=== PATIENT | female | born 1950 | race Caucasian/White ===

== ENCOUNTER 2016-09-13 21:11 | Inpatient (IN) | payer MEDICARE ==
[~2016-09-13] VITALS: Ht 157.4 cm; Wt 64.9 kg
--- NOTE | ~2016-09-13 | PR ---
[place], [place] PROGRESS NOTE NAME: RAY MANZANO [facility] #: [id number] UNIT #: [id number] ROOM: 508 DOCTOR: MARTHA GARZA MD BIRTHDATE: [birth year] DOS: 09/19/2016 SUBJECTIVE: The patient was seen at her bedside today 09/19/2016 for followup of congestive heart failure and left ventricular dysfunction. She did have a pharmacologic stress test yesterday, which showed global left ventricular hypokinesis and no specific area of ischemia. This study is compatible with a dilated nonischemic cardiomyopathy. She denies any chest pain or palpitations. She has ambulated short distances. She still has significant lower extremity edema. PHYSICAL EXAMINATION: VITAL SIGNS: Today, her pulse is 78 and regular, blood pressure 165/82. She is afebrile. She weighs 64.9 kg and has a body mass index of 26.2. HEENT: Normocephalic, atraumatic. Extraocular muscles are intact. Sclerae are clear. Pupils are equal, round and reactive to light. The oral mucosa is moist. Tongue is midline. NECK: Supple. She does have jugular distention with hepatojugular reflux when sitting in a 45 degree angle. Carotids are full without bruits. LUNGS: Respirations are unlabored. She has decreased breath sounds at the bases bilaterally. There is no presacral edema. HEART: Regular rhythm with a fourth heart sound and loud third heart sound. The PMI is displaced laterally. ABDOMEN: Soft and normally active. EXTREMITIES: Showed 3+ edema bilaterally. LABORATORY DATA: Sodium is 140, potassium 4.6, BUN 38 and creatinine 3.04. Her estimated GFR is 18. Hemoglobin is 10.6. IMPRESSION: 1. Anasarca. 2. Hemodynamically insignificant pericardial effusion. 3. Dilated probably nonischemic cardiomyopathy. 4. Type 2 diabetes mellitus. 5. Acute renal failure. PLAN: We will continue to treat her with unloading therapies and beta blockers along with oral diuretics. I would prefer to use an ERICH inhibitor rather than hydralazine, but I am afraid that at this point ERICH inhibitors or angiotensin receptor blockers would worsen her renal insufficiency. We will therefore increase her isosorbide, increase hydralazine, increase her beta denise and continue to observe her at least one more day in the hospital. I thank the hospitalist physicians for asking our advice regarding her care. [place], [place] PROGRESS NOTE NAME: RAY MANZANO UNIT #: [id number] ROOM: 508 DOCTOR: GREG KAISER,MARTHA BIRTHDATE: [birth year] MARTHA GARZA MD CM:PNTRANS [phone] MARTHA GARZA MD 09/20/16 0553 interface
--- NOTE | ~2016-09-13 | PR ---
[place], [place] PROGRESS NOTE NAME: RAY MANZANO UNIT #: [id number] ROOM: 508 DOCTOR: WILVER KAUR MD,EYAD BIRTHDATE: [birth year] DOS: 09/21/2016 PULMONARY PROGRESS NOTE SUBJECTIVE: The patient has been noted comfortable at this time, but still noted shortness of breath with exertion. There was no coughing or chest pain described. OBJECTIVE: VITAL SIGNS: For the patient which has been recorded shows a temperature of the patient noted as normal. The respiratory rate recorded 18, heart rate 71, blood pressure 142/64. HEENT: Showed no new change. NECK: Supple. CARDIOVASCULAR: S1, S2 audible. LUNGS: The patient was noted with decreased breath sounds at lung bases. ABDOMEN: Soft and nontender. LABORATORY DATA: BMP this morning, BUN 36, creatinine 2.92, glucose 123. IMPRESSION: The patient with chronic kidney disease. The patient with acute kidney injury, bilateral pleural fluid and the suspected congestive heart failure with cardiomyopathy. PLAN OF TREATMENT: No changes from the pulmonary standpoint. Continue the patient on current therapy, plan of management. Upon discharge, the patient would require assessment for possible home oxygen supplementation. In the meantime, continue the previous treatment, plan of management at this time. Pleural fluid of the patient had not been noted with any worsening of after the previous thoracentesis, right side, and continued to be monitored. EYAD PETTIT MD CM:PNTRANS [phone] EYAD KAUR MD 09/22/16 0206 interface
--- NOTE | ~2016-09-13 | PR ---
[place], [place] PROGRESS NOTE [id number] UNIT #: [id number] ROOM: 508 DOCTOR: [place] MARXZORAIDA BIRTHDATE: [birth year] DOS: 09/15/2016 RENAL PROGRESS NOTE SUBJECTIVE: The patient states she is feeling much better today. She did undergo a thoracentesis earlier today as well, which she has tolerated well. She feels her edema has improved considerably also. She denies orthopnea, PND or dyspnea. Notes her appetite is quite good and feels her strength is improving also. PHYSICAL EXAMINATION: VITAL SIGNS: Blood pressure is 142/88, pulse is 80, respirations 20, temperature is 97.8 degrees Fahrenheit. GENERAL APPEARANCE: Of a thin female, awake, alert, in no apparent distress. LUNGS: Slightly diminished at the bases, otherwise clear to auscultation and percussion. HEART: Regular, without S3 or rub. ABDOMEN: Soft, plus bowel sounds. EXTREMITIES: No clubbing, cyanosis. Anasarca is appreciated. LABORATORY DATA: From today, CBC, hematocrit 33.4, platelets are 210,000. Sodium is 143, potassium 4.0, chloride of 111, CO2 of 28, BUN 29, creatinine 2.67, glucose was 136, phosphorus 3.3, mag noted, calcium 7.8, albumin was 2.2, corrected calcium is 9.2. Urine is yellow and clear, urine specific gravity 1.025, 2+ protein, 2+ blood, 2+ bacteria. Spot urine protein was 310.5, spot urine creatinine was 81.6 with protein creatinine ratio of 3.8. Renal ultrasound dated 09/14/2016 shows right kidney measuring 8.4 cm, left kidney measuring 9.7 cm in size. No hydronephrosis or masses appreciated. Echocardiogram is pending. ASSESSMENT: 1. Acute kidney injury. Renal function is stable. Electrolytes are satisfactory. Volume status is unchanged. I suspect this most likely represents acute discovery of chronic kidney disease. 2. Anasarca, most likely a reflection of her underlying nephrotic syndrome with some third space related to low albumin levels. Echocardiogram is pending, though I do not think that a primary cardiac etiology is present. RECOMMENDATIONS: Agree with ongoing management including ongoing diuresis. We will follow intake and output as well as renal function, electrolytes closely. Await results of pending echocardiogram. I will check an SPEP, HUMBLE/ANCA level, C3 and C4 level and hepatitis profile to complete her evaluation for underlying proteinuria. Additionally, we will check intact PTH and 25-vitamin D levels to evaluate for underlying metabolic bone disease. [place], [place] PROGRESS NOTE NAME: RAY MANZANO UNIT #: [id number] ROOM: 508 DOCTOR: ZORAIDA CASIANO DO BIRTHDATE: [birth year] ZORAIDA CASIANO DO CM:PNKIKA [id number] ZORAIDA CASIANO DO 09/20/16 0740 interface
--- NOTE | ~2016-09-13 | PR ---
[place], [place] PROGRESS NOTE NAME: RAY MANZANO UNIT #: [id number] ROOM: 508 DOCTOR: MARTHA GARZA MD BIRTHDATE: [birth year] DOS: 09/16/2016 CARDIOLOGY PROGRESS NOTE SUBJECTIVE: The patient was seen at her bedside today, 09/16/2016, for followup of anasarca and left ventricular dysfunction. She is a 66-year-old woman who presented to the hospital on 09/14/2016 because of worsening lower extremity edema and abdominal swelling. She was also found to have a pleural effusion and a pericardial effusion. An echocardiogram was done on 09/14/2016 and showed that the left ventricular systolic function was moderately to severely decreased with mild left ventricular dilation and an ejection fraction between 25 and 30%. The left atrium was mildly dilated. Mild mitral insufficiency was seen and there was also mild mitral insufficiency. Yesterday, she did undergo a thoracentesis and feels considerably better. PHYSICAL EXAMINATION: VITAL SIGNS: Today, her pulse is 76 and regular, blood pressure is 150/89. She is afebrile. NECK: Supple. She has mild jugular distention with hepatojugular reflux. Carotids are full. LUNGS: Respirations are unlabored. Her chest has decreased breath sounds at the bases. There are no wheezes or rales. HEART: Has a regular rhythm. She has a fourth heart sound and a soft third heart sound. The PMI is displaced laterally. ABDOMEN: Slightly distended. EXTREMITIES: Showed 3+ edema to above the knees. LABORATORY DATA: Hemoglobin is 10.4, white count 5700. Sodium 143, potassium 4.4, BUN 33, and creatinine 2.98. Serial troponin levels have been mildly elevated, but in a pattern that does not suggest an acute myocardial injury. The cause of the patient's left ventricular systolic dysfunction is not yet known and the patient is undergoing an evaluation for her anasarca. For now, we will continue gentle diuresis with close observation of her renal function and probably plan on a pharmacologic myocardial perfusion study within the next 48 hours. We thank the hospitalist group for asking our advice regarding her care. [place], [place] PROGRESS NOTE NAME: RAY MANZANO UNIT #: [id number] ROOM: 508 DOCTOR: MARTHA GARZA MD BIRTHDATE: [birth year] MARTHA GARZA MD CM:PNTRANS [phone] MARTHA GARZA MD 09/16/162047 interface
--- NOTE | ~2016-09-13 | CON ---
[place], [place] RE[facility] OF [facility]ATION [id number] UN[facility] #: [id number] ROOM: 508 DOCTOR: WILVER KAUR MDEYAD BIRTHDATE: [birth year] DOS: 09/14/2016 REASON FOR CONSULTATION: The consultation was requested for the patient for assessment of pleural effusions. HISTORY OF PRESENT ILLNESS: This is a 66-year-old female who has been admitted to the hospital under care of the hospitalist service for the patient on 09/13/2016. She presented to the hospital as she developed progressive edema of the lower extremities. The edema has been noted with gradual worsening. The patient stated that she is trying to relieve the edema of the patient by elevating the legs. It was noted with partial improvement previously, but later on the edema was noted to be worsened. The patient was noticed with symptoms of shortness breath, which occurs with exertion as well as orthopnea. Denies symptoms of chest pain, coughing, or any sputum expectoration. Denies symptoms of wheezing. REVIEW OF SYSTEMS: CONSTITUTIONAL: She does complain of symptoms of fatigue and tiredness without any fever or chills. EYES: Denies any burning, redness, or tenderness. EARS, NOSE, AND THROAT: Denies sore throat, hoarseness, otalgia, postnasal drainage. CARDIOVASCULAR: Denies anginal pain. The patient was noted with edema of the bilateral lower extremities, which was significant, 2+ to 3+. There was no pain described for this patient upon walking. GASTROINTESTINAL: Denies dysphagia, nausea, vomiting, diarrhea, abdominal pain, hematemesis, melena, or hematochezia. SKIN: Denies any lesions or rashes. MUSCULOSKELETAL: Denies acute joint pain, redness, or tenderness. CENTRAL NERVOUS SYSTEM: Denies dizziness, headache, diplopia, or syncopal episodes. The remaining systems were reviewed with the patient, they were noted all negative. PAST MEDICAL HISTORY: For this patient was described as history of type 2 diabetes mellitus. SOCIAL HISTORY: The patient stated that she is , has 2 children. One of the daughter was present with the patient in the room at the time of the assessment. Denies any history of alcohol use or any illicit drug use. Tobacco use was noted for this patient, smoking started at age of [age] years old, a pack of cigarettes per day, currently smoking half a pack of cigarettes per day. Denies history of alcohol use or illicit drug use or occupation related pulmonary exposure. PAST SURGICAL HISTORY: Noted as: 1. Cataract extraction with lens implantation. 2. Tonsillectomy. [place], [place] REPORT OF CONSULTATION NAME: RAY MANZANO UNIT #: [id number] ROOM: 508 DOCTOR: EYAD HADLEY MD BIRTHDATE: [birth year] FAMILY HISTORY: For the patient was reported the father for this patient at the age of 4545 years old, unknown medical illnesses. Mother for the patient 60+ years old from unknown medical illnesses as well. HOME MEDICATIONS: Noted none. DRUG ALLERGIES: Reported as no known drug allergies. PHYSICAL EXAMINATION: GENERAL: A 66-year-old female who has been currently sitting on the bed without any acute distress at the time of the assessment. The patient's height was recorded as 5 feet 2 inches, weight of 143 pounds, BMI 26.2. VITAL SIGNS: Normal temperature, respiratory rate 20, heart rate of 97-86, blood pressure 132/76-160/98. Intake is ____, output 300 mL. Pulse oxygen saturation of the patient on room air 97% saturation recorded. HEENT: Examination shows head was atraumatic. Eyes nonicterus. NECK: Supple. CARDIOVASCULAR: S1, S2 audible. LUNGS: The patient was noted with absent breath sounds in the right lower lung as well as in the left lung base. Scattered crackles were present. There was no wheezing. ABDOMEN: Soft, nontender. EXTREMITIES: Showed 2+ to 3+ pitting edema of bilateral lower extremities. CENTRAL NERVOUS SYSTEM: Cranial nerves 2-12 intact. No focal deficit. MUSCULOSKELETAL: Does not show any deformities. SKIN: Showed no lesions or rashes. LABORATORY DATA: CBC of 09/13/2016 on admission, WBC count 8.3, hemoglobin 11.8, hematocrit 37.6, platelet count was normal. The lactic acid yesterday noted 0.8. The CMP of the patient yesterday on admission, BUN 27, creatinine 2.52, glucose 155. The albumin 3.1. CBC of this morning essentially remains stable as of yesterday. BMP this morning was noted BUN 26, creatinine 2.49, glucose 190. Sodium 146. The chest x-ray of the patient that was done 1 view of the patient 09/13/2016 shows evidence of pleural fluid noted in the right side, moderate size, and small in the left side. The patient had a CT scan of the chest, abdomen, and pelvis which was completed without contrast because of the elevation of creatinine. The patient was noted with findings of moderate sized right pleural fluid for the patient was noted with pericardial effusion as well. Small left-sided pleural fluid was noted as well. Abdomen and pelvis limited study for the patient without contrast for the patient does not show any acute abnormalities. IMPRESSION: 1. The patient who has been currently noted with findings of progressive edema of the lower extremity and findings consistent with acute congestive heart failure with a systolic or diastolic dysfunction would be considered. 2. The patient with abnormal BUN and creatinine of the patient. Possibility of acute kidney injury and chronic kidney disease for the patient to be considered in differential diagnosis. Acute kidney injury may be considered because of the prerenal component with congestive heart failure. [place], [place] REPORT OF CONSULTATION NAME: RAY MANZANO UNIT #: [id number] ROOM: 508 DOCTOR: WILVER KAUR MD,EYAD BIRTHDATE: [birth year] 3. History of chronic nicotine dependence without any known diagnosis of pulmonary problem. Assess possibility of chronic obstructive pulmonary disease with clinical assessment. 4. History of noncompliance with the patient with the past history of diabetes mellitus, not being managed by any physician, the patient not seeing any physician on a regular basis. PLAN OF TREATMENT: Diuretic for the patient to be continued carefully for the patient, monitoring the BUN and creatinine of the patient closely as well. Monitoring pleural fluid for this patient. If the kidney function continued to do worse for this patient, certainly thoracentesis could be done for more assessment and relief of the symptoms. Currently, the patient not noted in any acute respiratory distress and not requiring any significant oxygen supplementation at the present time and remains on room air. Supportive therapy, plan of management. The edema of the lower extremity has been noted related to congestive heart failure. The deep venous thrombosis already excluded with the ultrasound Doppler. She is already getting Lasix 40 mg IV daily, which will be continued. Other supportive therapy, plan of management to be continued. Nicotine replacement patches for the patient will be ordered to help overcome any nicotine withdrawal. There were no signs of any active infection, pneumonia. Consider discontinuation of the antibiotics. Thanks for allowing me to participate in the care of this patient. EYAD PETTIT MD CM:CONSTR:REPORT OF CONSULTATION 1111 09/14/16 1646 interface
--- NOTE | ~2016-09-13 | PR ---
[place], [place] PROGRESS NOTE NAME: RAY MANZANO [facility] #: [id number] UNIT #: [id number] ROOM: 508 DOCTOR: MARTHA GARZA MD BIRTHDATE: [birth year] DOS: 09/18/2016 SUBJECTIVE: The patient was seen in the Cardiology Department just prior to a stress test today. She states that she feels about the same. She denies any chest pain or palpitations. She still has some peripheral edema. PHYSICAL EXAMINATION: VITAL SIGNS: Today, her pulse is 73 and regular, blood pressure is 154/76. She is afebrile. She weighs 64.9 kilograms with a body mass index 26.2. Her I and O is slightly positive for the last 3 days. HEENT: Normocephalic, atraumatic. Extraocular muscles are intact. Sclerae are clear. Pupils are round and react to light. The oral mucosa is moist. Tongue is midline. NECK: Supple. She has jugular distention with hepatojugular reflux when sitting upright. Carotids are full. LUNGS: Respirations are unlabored. She has decreased breath sounds at the bases bilaterally, but no presacral edema. HEART: Has a regular rhythm with a fourth heart sound and a loud third heart sound. The PMI is somewhat displaced laterally. ABDOMEN: Soft and normally active. She does have a slight fluid wave. EXTREMITIES: Continued to show 3+ edema bilaterally. LABORATORY DATA: Hemoglobin today is 10.6 with hematocrit 33.6, there are 7000 white cells, and 220,000 platelets. Sodium is 142, potassium 4.6, BUN 41, creatinine 3.19 with estimated GFR of 14. IMPRESSION: 1. Anasarca. 2. Hemodynamically insignificant pericardial effusion. 3. Cardiomyopathy, etiology to be determined. 4. Type 2 diabetes mellitus. 5. Acute renal failure. PLAN: We will proceed with a pharmacologic myocardial perfusion study today to determine if her left ventricular dysfunction is related to coronary artery disease. For now, we will also continue managing her with low doses of spironolactone and furosemide along with hydralazine and isosorbide for left ventricular dysfunction. She will remain on a low dose of metoprolol. Further recommendations depend upon the results of her stress test. I thank the hospitalist physicians for asking our advice regarding her care. [place], [place] PROGRESS NOTE NAME: RAY MANZANO UNIT #: [id number] ROOM: 508 DOCTOR: MARTHA GARZA MD BIRTHDATE: [birth year] MARTHA GARZA MD CM:LES [phone] MARTHA GARZA MD 09/18/16 1055 interface
--- NOTE | ~2016-09-13 | CON ---
[place], [place] REPORT OF CONSULTATION NAME: RAY MANZANO UNIT #: [id number] ROOM: 508 DOCTOR: GARCIA RICH MD BIRTHDATE: [birth year] DATE: 09/14/16 REASON FOR CONSULTATION: Pericardial effusion. HISTORY OF PRESENT ILLNESS: The patient is a 66-year-old patient who was brought to the hospital for progressive lower extremity edema for the past 1-2 years. She also had some orthopnea. She has not been seen by primary care physician for a few years and she is going to live with her family in this area and family is trying to establish a local physician. She used to live in [place] before. Her only complaint is orthopnea and progressive lower extremity edema and also some mild shortness of breath on exertion, but she denies any chest pain or palpitations. No orthopnea. No fever or chills. No constipation. She did have some diarrhea. No headache. No blurred vision or double vision. No hematuria or dysuria. No cough or hemoptysis. No joint pain or tenderness. REVIEW OF SYSTEMS: Review of the 8 systems negative except as mentioned above. PAST MEDICAL HISTORY: 1. History of diabetes type 2. 2. Chronic kidney disease. PAST SURGICAL HISTORY: History of cataract surgery, history of tonsillectomy. SOCIAL HISTORY: The patient does not drink alcohol, does not use illicit drugs, but does smoke half pack a day. FAMILY HISTORY: Father between 40 to 50 age, cause unknown. Mother around 60 years, cause unknown. ALLERGIES: No known drug allergies. HOME MEDICATIONS: Reviewed. PHYSICAL EXAMINATION: VITAL SIGNS: Blood pressure 132/76, pulse 80, respiratory rate 20, weight 64.9 kg, BMI 26.2. GENERAL: Alert, comfortable, in no acute distress. HEAD AND NECK: Supple, no distended neck veins, no carotid bruit. No jaundice. Tongue was moist and pharynx was clear. CHEST: Symmetrical, nontender. LUNGS: Clear to auscultation bilaterally, a few scattered rhonchi, slightly diminished at bases. HEART: Regular rhythm. No S3. Grade 1/6 systolic murmur. ABDOMEN: Benign. Bowel sounds normal. EXTREMITIES: Showed 2+ edema. Distal pulses are fair. The patient had a large callus at the bottom of the right foot. NEUROLOGIC: The patient is alert, oriented. No focal neurologic deficit. RECTAL: Deferred. GENITOURINARY: Deferred. DIAGNOSTIC TESTS: EKG, labs and imaging studies reviewed. [place], [place] REPORT OF CONSULTATION NAME: RAY MANZANO UNIT #: [id number] ROOM: 508 DOCTOR: GARCIA RICH MD BIRTHDATE: [birth year] A 2D echo is done today, which is also reviewed. IMPRESSION: 1. Moderate pericardial effusion with no significant tamponade. 2. Borderline elevation of troponin, most likely due to chronic kidney disease. 3. Chronic kidney disease. 4. Urinary tract infection. 5. Acute congestive heart failure, systolic heart failure with the echo showing an EF of about 25-30%. 6. Diabetes type 2. RECOMMENDATIONS: 1. She denies any chest pain. Currently, blood pressure, heart rate is stable and clinically there are no signs of tamponade. 2. Start low dose beta-blockers for her cardiomyopathy and monitor heart rate and blood pressure. 3. No ERICH inhibitors or ARBs due to her chronic kidney disease. 4. Continue IV diuretics and monitor daily weights, in and outs as well as renal function. 5. If she develops any signs of cardiac tamponade such as hypotension, tachycardia, or elevated JVD, then she will need a pericardial window. 6. Eventually, she will need stress test or cardiac catheterization when she is clinically more stable. 7. Consider LifeVest at the time of discharge. 8. We discussed with the patient's family about her cardiac conditions. GARCIA RICH MD CM:CONSTR:REPORT OF CONSULTATION [id number] 09/20/16 0729 DONTE LIM.[facility]
--- NOTE | ~2016-09-13 | PR ---
[place], [place] PROGRESS NOTE NAME: RAY MANZANO UNIT #: [id number] ROOM: 508 DOCTOR: EYAD HADLEY MD BIRTHDATE: [birth year] DOS: 09/19/2016 SUBJECTIVE: She has been comfortably resting in the bed, underwent cardiac stress testing yesterday. The patient denies any symptoms of chest pain or any abdominal pain. There was no coughing or hemoptysis. OBJECTIVE: VITAL SIGNS: Normal temperature, respiratory rate 18, heart rate 79, blood pressure ____. Intake for the patient was 1220 mL/1275 mL. Pulse oxygen saturation on room air 95% saturation. HEENT: Examination shows no acute change. NECK: Supple. CARDIOVASCULAR: S1, S2 audible. LUNGS: The patient was noted without any wheezing or crackles at the present time. ABDOMEN: Soft and nontender. LABORATORY DATA: BMP this morning, glucose 102, BUN 38, creatinine 3.04. The Lexiscan stress testing that was performed yesterday. The patient was assessed by Dr. Andres and described as a normal myocardial perfusion images without any nuclear medicine evidence of ischemic changes. The systolic function and ____ left ventricular ejection fraction was noted at 35%. IMPRESSION: 1. Congestive heart failure, bilateral pleural fluids, status post thoracentesis large volume of pleural fluid for this patient from the right side previously. Cytology of the pleural fluid was pending. The chest x-ray that was done yesterday with the patient, review showed continued improvement in the pleural fluid for admission. 2. Resolving acute kidney injury of the patient with suspected chronic kidney disease stage 3 as well. PLAN OF TREATMENT: Continue current plan of management and monitor kidney function, diuresis with close monitoring of the labs at this time. No intervention for the pleural fluid, otherwise, will be needed. Supportive therapy plan and management to be continued. Usual care, other medical treatments. [place], [place] PROGRESS NOTE NAME: RAY MANZANO UNIT #: [id number] ROOM: 508 DOCTOR: EYAD HADLEY MD BIRTHDATE: [birth year] EYAD PETTIT MD CM:PNTRANS [id number] EYAD KAUR MD 09/19/16 1101 interface
--- NOTE | ~2016-09-13 | PR ---
[place], [place] PROGRESS NOTE NAME: RAY MANZANO UNIT #: [id number] ROOM: 508 DOCTOR: MARTHA GARZA MD BIRTHDATE: [birth year] DOS: 09/17/2016 CARDIOLOGY PROGRESS NOTE SUBJECTIVE: The patient was seen at her bedside today with family members in attendance. She is being seen on 09/17/2016 for evaluation and followup of anasarca, renal failure, and left ventricular dysfunction. She is a 66-year-old woman who presented to the hospital on 09/14/2016 with worsening lower extremity edema and abdominal swelling. She was found to have a pleural effusion, pericardial effusion, and poor left ventricular systolic function with ejection fraction between 25% and 30%. The left atrium was mildly dilated. Mild mitral insufficiency was seen. Creatinine on admission was 2.52 and is currently 3.08. Serologies, etc., have been ordered to help explain her renal insufficiency. At this time, she is on diuretics and we will be decreasing the intensity of diuresis because of her renal insufficiency. PHYSICAL EXAMINATION: GENERAL: She is an elderly white female who is awake, alert and oriented. VITAL SIGNS: Pulse is 70 and regular, blood pressure 136/75. She is afebrile. NECK: Supple. She has jugular distention and hepatojugular reflux when sitting in a 45-degree angle. Carotids are full. LUNGS: Respirations are unlabored. She has diminished breath sounds at the bases bilaterally. She has no presacral edema. HEART: Has a regular rhythm. She has a fourth heart sound and a third heart sound. The PMI is somewhat displaced laterally. ABDOMEN: Soft and normoactive. There is a slight fluid wave. EXTREMITIES: Showed 3+ edema to above the knees. PLAN: We will proceed with a pharmacologic stress test to determine if her cardiac malfunction is from coronary artery disease. At this point, we will be treating her with hydralazine and nitrates for her left ventricular dysfunction. Nephrology workup is probably also an important part of assessment and will be deferred to the primary service. I thank the hospitalist group for asking our advice regarding her care. [place], [place] PROGRESS NOTE NAME: RAY MANZANO UNIT #: [id number] ROOM: 508 DOCTOR: MARTHA GARZA MD BIRTHDATE: [birth year] MARTHA GARZA MD CM:PNTRANS [phone] MARTHA GARZA MD 09/17/16 2245 interface
--- NOTE | ~2016-09-13 | CON ---
[place], [place] REPORT OF CONSULTATION NAME: RAY MANZANO UNIT #: [id number] ROOM: 508 DOCTOR: YENI COLON DPM BIRTHDATE: [birth year] DOS: 09/15/2016 SUBJECTIVE: This 66-year-old white female seen as consulted for evaluation of an area on the bottoms of her right foot. She states she has been diabetic for quite sometime. She has had a callus on the right foot for many years that she is shaves down with a razor blade at home. The patient was admitted because of respiratory issues and pleural effusion. She states she is feeling well. She has no pain in either foot. PAST MEDICAL HISTORY: Positive for diabetes, history calf cataract surgery, tonsillectomy, recent respiratory issues, pneumonia, pleural effusion, history of lower extremity edema. CURRENT MEDICATIONS: Include Lasix, vitamin D, Toprol, Nicoderm, Humalog, heparin, Zithromax, Rocephin, Restoril, and Hooper. ALLERGIES: The patient has no known drug allergies. OBJECTIVE: Upon lower extremity physical examination, DP and PT pedal pulses are palpable. There is dependent edema noted bilaterally, 1+ pitting edema with no erythema or open wounds noted on either calf for leg. CFT is slightly delayed to the toes. Skin temperature is warm. Sensation appears mildly decreased in the forefoot bilaterally. Plantar surface of the right foot, sub-third metatarsal head has hyperkeratotic lesion, which upon debridement reveals no open areas. There is no drainage or malodor. No erythema or increased temperature. No ulceration is seen. She has a hyperkeratotic lesion seen at plantar fifth metatarsal head, left foot with again no open areas noted. No signs of infection noted bilaterally. Left fourth toenail has fallen off and there is no sign of infection in that area as well. ASSESSMENT: Diabetes mellitus, diabetic peripheral neuropathy, preulcerative callus of sub-third metatarsal, right, sub-fifth metatarsal, left. PLAN: Consultation is performed. I debrided the calluses on both feet. I discussed conservative management of her deformity. I discussed about proper diabetic foot care. The patient would benefit from diabetic shoes with custom insoles. Upon discharge, we could see her in the office and get her those devices and this showed offload the pressure areas to reduce risk of ulceration in the future. We will follow up the patient as an outpatient. Right now, no wound care is needed on either foot as there is no ulceration. Thank you for the opportunity to take part in care of this patient. [place], [place] REPORT OF CONSULTATION NAME: RAY MANZANO UNIT #: [id number] ROOM: 508 DOCTOR: YENI COLON DPM BIRTHDATE: [birth year] YENI COLON DPM CM:CONSTR:REPORT OF CONSULTATION 1154 09/15/16 1217 interface
--- NOTE | ~2016-09-13 | PR ---
[place], [place] PROGRESS NOTE NAME: RAY MANZANO UNIT #: [id number] ROOM: 508 DOCTOR: WILVER KAUR MD,EYAD BIRTHDATE: [birth year] DOS: 09/18/2016 SUBJECTIVE: She has been noted comfortable at this time. Thoracentesis done, large volume of fluid was removed from the right pleural space. She has not been noticed symptoms of chest pain. This morning, the patient has been undergoing cardiac stress testing. OBJECTIVE: VITAL SIGNS: Showed normal temperature, respirations 18, heart rate 73, blood pressure 154/76. Intake 810 mL, output 450 mL. Pulse oxygen saturation on room air was 94% saturation. HEENT: Examination shows no new change. NECK: Supple. CARDIOVASCULAR: S1, S2 is audible. LUNGS: Noted decreased breath sound left lower lung. ABDOMEN: Soft, nontender. LABORATORY DATA: CBC that was done this morning shows hemoglobin 10.6, hematocrit 33.6, platelet count and WBC count was normal. BMP this morning, BUN 41, creatinine 3.19. Glucose 114. Chest x-ray of the patient post-thoracentesis procedure was noted with improvement in the aeration of the lungs for the patient on the right side. Small pleural fluid, the patient was noted in the left side. Pleural fluid analysis of the patient shows total cells of 95 with multiple cells for the patient noted that includes neutrophils, lymphocytes and macrophages. The chemistry of the pleural fluid for the patient was noted essentially consistent with a transudative pleural effusion. IMPRESSION: 1. The patient occurred noted with bilateral pleural fluid related to the acute congestive heart failure for this patient as well as because of the acute kidney injury for the patient would be considered. 2. Possibility of chronic kidney disease. The patient has been diagnosed with at least stage 3-4 would be considered as well. 3. OR severe debility as well. PLAN OF TREATMENT: Continue the current plan of management. Monitor chest x-ray of the patient closely. Repeat another chest x-ray of the patient to be done today. The patient reassessment of the pleural fluid reaccumulation. Supportive plan of management and treatments. [place], [place] PROGRESS NOTE NAME: RAY MANZANO UNIT #: [id number] ROOM: 508 DOCTOR: EYAD HADLEY MD BIRTHDATE: [birth year] EYAD PETTIT MD CM:LES [id number] [phone] EYAD KAUR MD 09/18/162036 interface
--- NOTE | ~2016-09-13 | PN ---
[place], [place] PROGRESS NOTE NAME: RAY MANZANO UNIT #: [id number] ROOM: 508 DOCTOR: EYAD HADLEY MD BIRTHDATE: [birth year] DATE: 09/15/16 SUBJECTIVE: The patient has been noted comfortable at this time, sitting on the bed. Denies symptoms of chest pain or any abdominal pain. OBJECTIVE: VITAL SIGNS: For the patient which has been recorded shows normal temperature, respiratory rate 20, heart rate 80, blood pressure 142/88. The pulse oxygen saturation on room air 96% saturation. Intake was noted 1000 mL, output 1300 mL. Pulse oxygen saturation of the patient on room air was 96% saturation recorded. HEENT: Showed no new change. NECK: Supple. CARDIOVASCULAR: S1, S2 audible. LUNGS: Absent breath for the patient was noted in the right lower lung with decreased breath sounds in the left lower lung. There were no crackles. ABDOMEN: Soft, nontender. LABORATORY DATA: CBC today: WBC count 5.7, hemoglobin 10.4, hematocrit 33.4, platelet count 210,000. The renal function panel for this morning was noted as BUN 29, creatinine of 2.67. Magnesium was 2.2, albumin of 2.2. IMPRESSION: 1. Bilateral pleural fluid. The patient with a large pleural fluid on the right and smaller on the left side, which still remains persistent with clinical assessment and the ultrasound assessment: 2. The patient with acute kidney injury of the patient versus chronic kidney disease, currently being assessed. 3. Possibility of congestive heart failure, strongly suspected. PLAN OF TREATMENT: Continue the current workup of the patient medical and cardiac problems as well as for the kidney problems. Thoracentesis was planned to be done at the bedside for the larger pleural fluid with the right side. The left side pleural fluid at this time will be monitored. Further changes in the treatment of the patient will be done based on the progression of the illness. [place], [place] PROGRESS NOTE NAME: RAY MANZANO UNIT #: [id number] ROOM: 508 DOCTOR: EYAD HADLEY MD BIRTHDATE: [birth year] EYAD HADLEY MD CM:PNTRANS 1133 120 EYAD KAUR MD 09/18/16 1202 DONTE LIM.R
--- NOTE | ~2016-09-13 | ST ---
[place], [place] EXERCISE STRESS TEST REPORT NAME: RAY MANZANO UNIT #: [id number] ROOM: 508 DOCTOR: MARTHA GARZA MD BIRTHDATE: [birth year] DOS: 09/18/2016 PHARMACOLOGIC STRESS TEST INDICATIONS: Left ventricular dysfunction, CHF, abnormal electrocardiogram. PROCEDURE: The patient was given a rapid infusion of regadenoson 0.4 mg intravenously followed by a saline flush. She had no significant symptoms. The resting electrocardiogram showed sinus rhythm with an occasional PVC. There was nonspecific T-wave flattening. With the infusion, she did not develop any new changes. She did have a normal increase in heart rate from 78 at rest to 82 with the infusion. Her blood pressure remained stable at 144/80 beforehand and 146/78 during the infusion. 40 seconds after the infusion of regadenoson, she was given radionuclide intravenously. IMPRESSION: 1. Well tolerated infusion of regadenoson. 2. Radionuclide administered. Please see the separate imaging report for further details of the patient's stress test results. MARTHA GARZA MD CM:STRESS:EXERCISE STRESS TEST REPORT [id number] MARTHA GARZA MD
--- NOTE | ~2016-09-13 | PR ---
[place], [place] PROGRESS NOTE NAME: RAY MANZANO UNIT #: [id number] ROOM: 508 DOCTOR: MCKAYLA KAISERDIAMOND Gil BIRTHDATE: [birth year] DOS: 09/16/2016 NEPHROLOGY FOLLOWUP NOTE SUBJECTIVE: The patient was seen and examined. She is awake and alert. Denied any shortness of breath or chest pain. She denied nausea or vomiting. PHYSICAL EXAMINATION: VITAL SIGNS: Showed temperature 98, pulse 74, respirations 20, blood pressure 157/84. HEENT: Shows mild JVD. Sclerae are anicteric. LUNGS: Diminished breath sounds with scattered rhonchi. HEART: Normal S1, S2. No rub, thrill or gallop. ABDOMEN: Soft, nontender. There is no organomegaly or rigidity. There is no rebound or guarding. There is no CVA tenderness. EXTREMITIES: Had 2+ edema. SKIN: Showed no rash. LABORATORY DATA: Sodium 143, potassium 4.4, CO2 of 27, BUN 33, creatinine 2.98, glucose 98, calcium of 8.1. Hemoglobin from yesterday was 10.4. Serologies were pending. IMPRESSION: 1. Would appear to be stage 4 chronic kidney disease. Her true baseline creatinine is not clear, but seems to be in the upper 2's range. I did review labs from 2016, which showed the patient's creatinine to be over 2. I do suspect she likely has underlying diabetic nephropathy/nephrosclerosis. An underlying glomerular disease is possible as well. The patient appears to have a fairly stable creatinine, although it is slightly higher than previous readings. Overall, I do believe she is close to her baseline. Continue supportive care. 2. Edema/anasarca with congestive heart failure and likely nephrotic syndrome. IV diuretics ongoing. According to the patient's family, she is improving her volume status. 3. Proteinuria. Serologies have been sent. This may be all related to diabetic nephropathy. We can consider renal biopsy as an outpatient if indicated. 4. Diabetes mellitus. The patient is on insulin. I explained to the patient and family that she will need outpatient renal followup on discharge as well as better compliance with medications and followup with her doctors. [place], [place] PROGRESS NOTE NAME: RAY MANZANO UNIT #: [id number] ROOM: 508 DOCTOR: DIAMOND BLOCK MD BIRTHDATE: [birth year] DIAMOND BLOCK MD CM:PNTRANS [id number] DIAMOND BLOCK MD 09/16/16 1848 interface
--- NOTE | ~2016-09-13 | PROC NOTE ---
[place], [place] PROCEDURE NOTE NAME: RAY MANZANO UNIT #: [id number] ROOM: 508 DOCTOR: EYAD HADLEY MD BIRTHDATE: [birth year] DATE: 09/15/16 RIGHT-SIDED THORACENTESIS, ULTRASOUND GUIDED PREOPERATIVE DIAGNOSES: The patient with the large right pleural fluid. POSTOPERATIVE DIAGNOSES: The patient with the large right pleural fluid. PROCEDURE: Removal of 1300 mL of pleural fluid from the right pleural space without any difficulty or complications. PROCEDURE DESCRIPTION: Informed consent was obtained from the patient. The ultrasound for the thoracentesis was obtained from the patient. The fluid does already marked with personally ultrasound performed at bedside with the patient. The skin was marked. Skin was cleaned with the chlorhexidine solution. 1% lidocaine was administered in the skin and intercostal space without any difficulty. During administration of local anesthetic, the right pleural space was entered removing small amount of fluid. After that small incision given in the skin. [place] thoracentesis catheter introduced through the incision into the right pleural space. A total of 1300 plus mL of pleural fluid was removed from the right pleural space without any difficulty. Chest x-ray post-procedure was completed for this patient, which shows significant reduction of the pleural fluid with the small area of remaining atelectasis of right lung. Procedure was well tolerated by the patient. Postoperative findings were discussed with the patient's daughter as well. EYAD HADLEY MD CM:PROCNOTE:PROCEDURE NOTE 1135 1200 EYAD KAUR MD
--- NOTE | ~2016-09-13 | PR ---
[place], [place] PROGRESS NOTE NAME: RAY MANZANO UNIT #: [id number] ROOM: 508 DOCTOR: EYAD HADLEY MD BIRTHDATE: [birth year] DOS: 09/20/2016 PULMONARY PROGRESS NOTE SUBJECTIVE: The patient has been comfortably resting on the bed without any distress. She has been currently completing the cardiac workup for this patient, underwent stress testing yesterday. OBJECTIVE: VITAL SIGNS: Shows normal temperature, respiratory rate 20, heart rate 71, blood pressure 154/76 to 163/72. Intake for the patient is 1130, output of 1700 mL, pulse oxygen saturation 94% on room air. HEENT: Examination shows no acute change. NECK: Supple. CARDIOVASCULAR: S1, S2 audible. LUNGS: The patient was noted without any wheezing or crackles in the lung, except reduced breath sounds still noted in the lower portion of the lungs bilaterally. ABDOMEN: Soft, nontender. LABORATORY DATA: CMP for the patient this morning shows BUN 37, creatinine 2.88. CBC this morning, mild anemia, otherwise normal CBC recorded. Cytology of the pleural fluid for the patient noted as benign. IMPRESSION: 1. The patient who has been currently admitted to the hospital noted for bilateral pleural fluid, underwent right-sided thoracentesis for this patient. 2. Congestive heart failure. 3. Acute kidney injury for the patient with possibility of chronic kidney disease has been considered as well. The kidney functions have been progressively resolving. The pleural fluid was also noted stable for this patient without any worsening after thoracentesis. PLAN OF TREATMENT: No changes from the pulmonary standpoint. Continue the patient on current therapy, plan of care as in progress. Usual care, other supportive plan of management and treatments. [place], [place] PROGRESS NOTE NAME: RAY MANZANO UNIT #: [id number] ROOM: 508 DOCTOR: EYAD HADLEY MD BIRTHDATE: [birth year] EYAD PETTIT MD CM:PNTRANS [id number] EYAD KAUR MD 09/21/16 0223 interface
[~2016-09-13 21:11] MED LIST: BACTRIM DS 8001 TA1 PO; CEPHALEXIN500 M1 PO
[2016-09-13 21:40] VITALS: BP 160/98
[2016-09-13 22:49] LABS: BASO % 0.5 % (0.0-1.0); EOS # 0.1 10*3/uL (0.0-0.4); EOS % 0.6 % (1.0-4.0); HEMATOCRIT 37.6 % (37.0-47.0); HEMOGLOBIN 11.8 g/dl (12.0-16.0); LYMPH # 0.7 10*3/uL (1.3-4.4); LYMPH % 8.4 % (27.0-41.0); MEAN CELL VOLUME 89.7 fl (81.0-99.0); MEAN CORPUSCULAR HGB 28.2 pg (27.0-31.0); MEAN CORPUSCULAR HGB CONC 31.4 g/dl (33.0-37.0); MONO # 0.6 10*3/uL (0.1-1.0); NEUT # 6.9 10*3/uL (2.3-7.9); NEUT % 83.1 % (47.0-73.0); PLATELET COUNT AUTOMATED 231 10*3/uL (130-400); RED BLOOD COUNT 4.19 10*6/uL (4.10-5.10); RED CELL DISTRI WIDTH 15.2 % (0-14.5); WHITE BLOOD COUNT 8.3 10*3/uL (4.8-10.8)
[2016-09-13 23:10] LABS: ALBUMIN 2.3 gm/dl (3.1-4.5); BILIRUBIN, TOTAL 0.4 mg/dl (0.2-1.0); MAGNESIUM 2.1 mg/dL (1.5-2.1); POTASSIUM 4.1 mmol/L (3.5-5.1); TOTAL PROTEIN 6.1 gm/dL (6.4-8.2)
[2016-09-13 23:11] LABS: TROPONIN I 0.042 ng/ml (<0.045)
[2016-09-13 23:17] LABS: THYROID STIM HORMONE (HS) 5.9 uIU/ml (0.358-4.75)
[2016-09-13 23:55] LABS: BILIRUBIN NEGATIVE (NEGATIVE); BLOOD 3+ (NEGATIVE); CLARITY SL CLOUDY (CLEAR); COLOR YELLOW (YELLOW); GLUCOSE 1+ (NEGATIVE); KETONE NEGATIVE (NEGATIVE); LEUKO ESTERASE NEGATIVE (NEGATIVE); NITRITE POSITIVE (NEGATIVE); PROTEIN 3+ (NEGATIVE); SPECIFIC GRAVITY 1.025 (1.005-1.030); UROBILINOGEN 0.2 E.U./dl (0.2-1.0)
[2016-09-14 00:15] LABS: BACTERIA 1+; URINE REFLEX COMMENT YES (NO)
[2016-09-14 06:23] LABS: BASO % 0.5 % (0.0-1.0); EOS # 0.1 10*3/uL (0.0-0.4); EOS % 0.8 % (1.0-4.0); HEMOGLOBIN 11.1 g/dl (12.0-16.0); LYMPH # 1.1 10*3/uL (1.3-4.4); LYMPH % 13.9 % (27.0-41.0); MEAN CELL VOLUME 91.1 fl (81.0-99.0); MEAN CORPUSCULAR HGB 28.1 pg (27.0-31.0); MEAN CORPUSCULAR HGB CONC 30.8 g/dl (33.0-37.0); MEAN PLATELET VOLUME 11.5 fl (9.6-12.3); MONO # 0.7 10*3/uL (0.1-1.0); MONO % 9.4 % (3.0-9.0); NEUT # 5.8 10*3/uL (2.3-7.9); NEUT % 75.1 % (47.0-73.0); PLATELET COUNT AUTOMATED 223 10*3/uL (130-400); RED BLOOD COUNT 3.95 10*6/uL (4.10-5.10); RED CELL DISTRI WIDTH 15.1 % (0-14.5); WHITE BLOOD COUNT 7.7 10*3/uL (4.8-10.8)
[2016-09-14 06:30] LABS: HEMOGLOBIN A1c 6.4 % (4.8-5.6)
[2016-09-14 06:39] LABS: FREE T4 0.95 ng/dl (0.76-1.46); MAGNESIUM 2.3 mg/dL (1.5-2.1); PHOSPHOROUS 3.1 mg/dL (2.5-4.9)
[2016-09-14 06:40] LABS: POTASSIUM 3.8 mmol/L (3.5-5.1)
[2016-09-14 08:00] VITALS: BP 132/76
[2016-09-14 12:00] VITALS: BP 143/72
[2016-09-14 16:00] VITALS: BP 155/84
[2016-09-14 18:49] LABS: BILIRUBIN NEGATIVE (NEGATIVE); BLOOD 2+ (NEGATIVE); CLARITY CLEAR (CLEAR); COLOR YELLOW (YELLOW); GLUCOSE TRACE (NEGATIVE); KETONE NEGATIVE (NEGATIVE); LEUKO ESTERASE NEGATIVE (NEGATIVE); NITRITE NEGATIVE (NEGATIVE); PROTEIN 2+ (NEGATIVE); SPECIFIC GRAVITY 1.025 (1.005-1.030); UROBILINOGEN 0.2 E.U./dl (0.2-1.0)
[2016-09-14 18:59] LABS: URINE TP/CRE RATIO 3.8 (<0.21)
[2016-09-14 19:13] LABS: BACTERIA 2+; EPITHELIAL CELLS 0-2; URINE REFLEX COMMENT YES (NO); WBC 0-2 wbc/hpf (0-5)
[2016-09-14 20:00] VITALS: BP 131/71
[2016-09-15] VITALS: BP 132/69
[2016-09-15 06:08] LABS: BASO % 0.5 % (0.0-1.0); EOS # 0.1 10*3/uL (0.0-0.4); EOS % 1.1 % (1.0-4.0); HEMATOCRIT 33.4 % (37.0-47.0); HEMOGLOBIN 10.4 g/dl (12.0-16.0); LYMPH # 1.5 10*3/uL (1.3-4.4); LYMPH % 25.6 % (27.0-41.0); MEAN CELL VOLUME 89.8 fl (81.0-99.0); MEAN CORPUSCULAR HGB CONC 31.1 g/dl (33.0-37.0); MEAN PLATELET VOLUME 11.4 fl (9.6-12.3); MONO # 0.5 10*3/uL (0.1-1.0); MONO % 8.8 % (3.0-9.0); NEUT # 3.6 10*3/uL (2.3-7.9); NEUT % 63.6 % (47.0-73.0); PLATELET COUNT AUTOMATED 210 10*3/uL (130-400); RED BLOOD COUNT 3.72 10*6/uL (4.10-5.10); RED CELL DISTRI WIDTH 15.3 % (0-14.5); WHITE BLOOD COUNT 5.7 10*3/uL (4.8-10.8)
[2016-09-15 06:27] LABS: ALBUMIN 2.2 gm/dl (3.1-4.5); MAGNESIUM 2.2 mg/dL (1.5-2.1); PHOSPHOROUS 3.2 mg/dL (2.5-4.9)
[2016-09-15 08:00] VITALS: BP 142/88
[2016-09-15 10:50] LABS: BODY FLUID RBC < 1000 /uL; BODY FLUID WBC 95 /uL
[2016-09-15 11:04] LABS: BODY FLUID AMYLASE 10 U/L; BODY FLUID CHOLESTEROL < 50 mg/dl; BODY FLUID GLUCOSE 148 mg/dl; BODY FLUID LDH 57 IU/L; BODY FLUID PROTEIN 1.5 g/dl; BODY FLUID TRIGLYCERIDE 11 mg/dl
[2016-09-15 11:46] LABS: BF LYMPHOCYTES 52 %; BF MONOCYTES 30 %; BF NEUTROPHILS 18 %; BODY FLUID TYPE PLEURAL
[2016-09-15 12:00] VITALS: BP 158/52
[2016-09-15 16:00] VITALS: BP 154/81
[2016-09-15 20:00] VITALS: BP 133/64
[2016-09-16] VITALS: BP 137/67
[2016-09-16 06:36] LABS: POTASSIUM 4.4 mmol/L (3.5-5.1)
[2016-09-16 08:00] VITALS: BP 100/60
[2016-09-16 12:00] VITALS: BP 157/84
[2016-09-16 16:00] VITALS: BP 150/89
[2016-09-16 20:00] VITALS: BP 138/94
[2016-09-17 00:09] VITALS: BP 127/74
[2016-09-17 06:00] VITALS: BP 128/72
[2016-09-17 06:06] LABS: BASO % 0.3 % (0.0-1.0); EOS % 0.4 % (1.0-4.0); HEMATOCRIT 33.1 % (37.0-47.0); HEMOGLOBIN 10.1 g/dl (12.0-16.0); LYMPH # 1.4 10*3/uL (1.3-4.4); LYMPH % 19.6 % (27.0-41.0); MEAN CELL VOLUME 91.4 fl (81.0-99.0); MEAN CORPUSCULAR HGB 27.9 pg (27.0-31.0); MEAN CORPUSCULAR HGB CONC 30.5 g/dl (33.0-37.0); MEAN PLATELET VOLUME 11.4 fl (9.6-12.3); MONO # 0.7 10*3/uL (0.1-1.0); MONO % 10.1 % (3.0-9.0); NEUT # 4.9 10*3/uL (2.3-7.9); NEUT % 69.2 % (47.0-73.0); PLATELET COUNT AUTOMATED 206 10*3/uL (130-400); RED BLOOD COUNT 3.62 10*6/uL (4.10-5.10); RED CELL DISTRI WIDTH 15.1 % (0-14.5); WHITE BLOOD COUNT 7.1 10*3/uL (4.8-10.8)
[2016-09-17 06:23] LABS: POTASSIUM 4.6 mmol/L (3.5-5.1)
[2016-09-17 07:08] LABS: COMPLEMENT C4 001834 24 mg/dL (14-44)
[2016-09-17 08:00] VITALS: BP 153/78
[2016-09-17 12:00] VITALS: BP 145/72
[2016-09-17 14:06] LABS: HEPATITIS C VIRUS ANTIBODY <0.1 s/co (0.0-0.9)
[2016-09-17 16:00] VITALS: BP 136/75
[2016-09-17 20:00] VITALS: BP 153/83
[2016-09-18 00:17] VITALS: BP 150/77
[2016-09-18 06:24] LABS: BASO % 0.6 % (0.0-1.0); EOS # 0.1 10*3/uL (0.0-0.4); HEMATOCRIT 33.6 % (37.0-47.0); HEMOGLOBIN 10.6 g/dl (12.0-16.0); LYMPH # 1.3 10*3/uL (1.3-4.4); LYMPH % 17.9 % (27.0-41.0); MEAN CELL VOLUME 90.1 fl (81.0-99.0); MEAN CORPUSCULAR HGB 28.4 pg (27.0-31.0); MEAN CORPUSCULAR HGB CONC 31.5 g/dl (33.0-37.0); MEAN PLATELET VOLUME 11.7 fl (9.6-12.3); MONO # 0.7 10*3/uL (0.1-1.0); NEUT # 4.9 10*3/uL (2.3-7.9); NEUT % 70.2 % (47.0-73.0); PLATELET COUNT AUTOMATED 220 10*3/uL (130-400); RED BLOOD COUNT 3.73 10*6/uL (4.10-5.10); RED CELL DISTRI WIDTH 15.3 % (0-14.5)
[2016-09-18 06:53] LABS: POTASSIUM 4.6 mmol/L (3.5-5.1)
[2016-09-18 08:00] VITALS: BP 154/76
[2016-09-18 12:00] VITALS: BP 152/80
[2016-09-18 15:07] LABS: ALBUMIN, URINE RANDOM 70.1 % (.); ALPHA-1-GLOBULIN, URINE 1.2 % (.); GAMMA GLOBULIN, URINE 14.6 % (.); M-SPIKE % Not Observed % (Not Observed); PROTEIN,TOTAL - URINE RANDOM 147.3 mg/dL (Not Estab.)
[2016-09-18 15:07] LABS: A/G RATIO 0.8 (0.7-1.7); ALBUMIN 2.4 g/dL (2.9-4.4); ALPHA-1-GLOBULIN 0.3 g/dL (0.0-0.4); BETA GLOBULIN 0.9 g/dL (0.7-1.3); GAMMA GLOBULIN 1.2 g/dL (0.4-1.8); GLOBULIN, TOTAL 3.1 g/dL (2.2-3.9); M-SPIKE Not Observed g/dL (Not Observed); TOTAL PROTEIN, SERUM 5.5 g/dL (6.0-8.5)
[2016-09-18 16:00] VITALS: BP 173/80
[2016-09-18 20:00] VITALS: BP 140/67
[2016-09-19 00:05] VITALS: BP 149/68
[2016-09-19 06:44] LABS: MAGNESIUM 1.9 mg/dL (1.5-2.1); PHOSPHOROUS 3.9 mg/dL (2.5-4.9); POTASSIUM 4.6 mmol/L (3.5-5.1)
[2016-09-19 08:00] VITALS: BP 146/70
[2016-09-19 12:00] VITALS: BP 148/70
[2016-09-19 16:00] VITALS: BP 165/82
[2016-09-19 20:00] VITALS: BP 151/73
[2016-09-20] VITALS: BP 163/72
[2016-09-20 07:13] LABS: BASO % 0.5 % (0.0-1.0); EOS # 0.1 10*3/uL (0.0-0.4); EOS % 0.8 % (1.0-4.0); HEMATOCRIT 34.9 % (37.0-47.0); HEMOGLOBIN 10.8 g/dl (12.0-16.0); LYMPH # 0.9 10*3/uL (1.3-4.4); LYMPH % 15.6 % (27.0-41.0); MEAN CELL VOLUME 89.7 fl (81.0-99.0); MEAN CORPUSCULAR HGB 27.8 pg (27.0-31.0); MEAN CORPUSCULAR HGB CONC 30.9 g/dl (33.0-37.0); MEAN PLATELET VOLUME 11.8 fl (9.6-12.3); MONO # 0.6 10*3/uL (0.1-1.0); MONO % 10.1 % (3.0-9.0); NEUT # 4.4 10*3/uL (2.3-7.9); NEUT % 72.8 % (47.0-73.0); PLATELET COUNT AUTOMATED 244 10*3/uL (130-400); RED BLOOD COUNT 3.89 10*6/uL (4.10-5.10); RED CELL DISTRI WIDTH 15.3 % (0-14.5)
[2016-09-20 07:38] LABS: ALBUMIN 2.3 gm/dl (3.1-4.5); BILIRUBIN, TOTAL 0.3 mg/dl (0.2-1.0); MAGNESIUM 2.3 mg/dL (1.5-2.1); PHOSPHOROUS 4.1 mg/dL (2.5-4.9); POTASSIUM 4.7 mmol/L (3.5-5.1); TOTAL PROTEIN 6.1 gm/dL (6.4-8.2)
[2016-09-20 08:00] VITALS: BP 154/76
[2016-09-20 12:00] VITALS: BP 159/90
[2016-09-20 16:00] VITALS: BP 144/68
[2016-09-20 20:00] VITALS: BP 157/79
[2016-09-21] VITALS: BP 140/77
[2016-09-21 07:41] LABS: ALBUMIN 2.3 gm/dl (3.1-4.5); PHOSPHOROUS 3.8 mg/dL (2.5-4.9)
[2016-09-21 08:00] VITALS: BP 142/64
[2016-09-21 12:00] VITALS: BP 146/71
[2016-09-21] MEDS ORDERED: METOPROLOL SUCC25 M2 PO (13:42)
[2016-09-21] MEDS ORDERED: IMDUR SA60 M1 PO (13:42)
[2016-09-21] MEDS ORDERED: ALDACTONE25 MG PO (13:42)
[2016-09-21] MEDS ORDERED: VITAMIN D50000 I3 PO (13:42)
[2016-09-21] MEDS ORDERED: HYDRALAZINE HYD50 MG PO (13:42)
[2016-09-21] MEDS ORDERED: FUROSEMIDE40 MG PO (13:42)
== END 2016-09-21 15:52 | disposition other institution (70) | DRG 177 ==
LOC: ED 21:11 → EDHOLD 09-14 01:58 → 5E 09-14 01:58
PROVIDERS: Emergency Medicine; Emergency Medicine Emergency Medical Services; Hospitalist; Internal Medicine; Internal Medicine Critical Care Medicine; Internal Medicine Hospice and Palliative Medicine; Internal Medicine Nephrology; Ophthalmology
PROC: 0W9930Z Drainage of Right Pleural Cavity with Drainage Device, Percutaneous Approach (ICD-10-PCS; principal; 2016-09-15)
PROC: 4A02XM4 Measurement of Cardiac Total Activity, External Approach (ICD-10-PCS; 2016-09-18)
PROC: 0HDMXZZ Extraction of Right Foot Skin, External Approach (ICD-10-PCS; 2016-09-18)
PROC: 3E073KZ Introduction of Other Diagnostic Substance into Coronary Artery, Percutaneous Approach (ICD-10-PCS; 2016-09-18)
PROC: 0HDNXZZ Extraction of Left Foot Skin, External Approach (ICD-10-PCS; 2016-09-18)
DX: J15.6 Pneumonia due to other Gram-negative bacteria (principal); N17.0 Acute kidney failure with tubular necrosis; E43 Unspecified severe protein-calorie malnutrition; I50.21 Acute systolic (congestive) heart failure; J90 Pleural effusion, not elsewhere classified; I31.3 Pericardial effusion (noninflammatory); N18.4 Chronic kidney disease, stage 4 (severe); E87.0 Hyperosmolality and hypernatremia; I13.0 Hypertensive heart and chronic kidney disease with heart failure and stage 1 through stage 4 chronic kidney disease, or unspecified chronic kidney disease; I42.0 Dilated cardiomyopathy; N39.0 Urinary tract infection, site not specified; J18.9 Pneumonia, unspecified organism; Z98.49 Cataract extraction status, unspecified eye; E11.65 Type 2 diabetes mellitus with hyperglycemia; D64.9 Anemia, unspecified; E83.41 Hypermagnesemia; Z68.26 Body mass index [BMI] 26.0-26.9, adult; F17.210 Nicotine dependence, cigarettes, uncomplicated; Z91.14 Patient's other noncompliance with medication regimen; E11.22 Type 2 diabetes mellitus with diabetic chronic kidney disease; E11.42 Type 2 diabetes mellitus with diabetic polyneuropathy; L84 Corns and callosities; E55.9 Vitamin D deficiency, unspecified; I27.2 Other secondary pulmonary hypertension; I50.9 Heart failure, unspecified

== ENCOUNTER 2016-11-15 17:04 | Inpatient (IN) | payer MEDICARE ==
[~2016-11-15] VITALS: Ht 157.5 cm; Wt 47.9 kg
--- NOTE | ~2016-11-15 | CON ---
[place], [place] REPORT OF CONSULTATION NAME: RAY MANZANO UNIT #: [id number] ROOM: 511 DOCTOR: ONEIDA NEUMANN MD BIRTHDATE: [birth year] DOS: 11/16/2016 NEPHROLOGY CONSULTATION. REASON FOR CONSULTATION: Acute kidney injury on chronic kidney disease. HISTORY OF PRESENT ILLNESS: The patient is a 66-year-old woman, previously seen by myself as well as my partners in hospitalization in mid August. At that time, she was admitted to the hospital after a fall at home. She was not followed by any doctors in over 10 years. She is originally from [place] and has been living in the [place] area for quite some time. She lives with her and her daughter. She was noted to have significant lower extremity and abdominal edema with anasarca. When she first presented at that time, her weights were noted to be approximately up to 65 kilos, on September 14. She was diuresed. The cause for her CKD was not clear initially. Serologic testing was performed. She had 2+ protein and protein creatinine ratio of 3.8 grams per mL. Her serum creatinine started around 2.1 in early August before her hospitalization, but prior to that about 7 years prior, renal function appeared to be normal based on one reading in March 2009. There was no subsequent change other than the creatinine did go up to around 3.2 during her hospitalization while being diuresed and came back down to about 2.9 at the time of discharge. She was fairly stable. She was voiding well. Her anasarca was improving significantly. We had asked her to continue with Lasix on an oral basis and she was started on spironolactone as well. She was not on ERICH inhibitor which left her hydralazine and metoprolol from a blood pressure standpoint. Otherwise, she was on vitamin D and Imdur at one point as well. She was scheduled to see me as an outpatient, but did not keep that appointment. She is rescheduled now in early November, but came to the hospital at the request of her primary care physician because of noted abnormal outpatient laboratories. On presentation, her creatinine was 4.55 with a BUN of 75 on November 15. When she came to the hospital, her creatinine had been down a bit to 4.15. She was told to stop her diuretics and she was given IV fluids 1 liter in the ER and started on rate of 80 mL an hour at this point. She is not having any complaints of nausea, vomiting, diarrhea or other signs of volume depletion. She is actually rather euvolemic appearing at this time with blood pressures ranging in the 130s to 120s systolic. She is not complaining of any chest pain, shortness of breath or urinary difficulties. She states that her appetite has generally not as good as it had been in the past. As mentioned before, urine protein did prompt a compliment HUMBLE and immunofixation and SPEP evaluation, which were negative. She has had uncontrolled hypertension for sometime in the past and likely is the etiology of her chronic kidney disease. She is now likely at a more euvolemic state and prompting her creatinine to start to show a significant rise. She had a thoracentesis done during her August admission as well, which was a transudate. Cytology was negative at that time. No imaging was obtained so far during this admission. PAST MEDICAL HISTORY: Uncontrolled hypertension in the past, history of CKD as above, vitamin D deficiency. PAST SURGICAL HISTORY: Cataract surgery, tonsillectomy. [place], [place] REPORT OF CONSULTATION NAME: RAY MANZANO UNIT #: [id number] ROOM: 511 DOCTOR: ONEIDA NEUMANN MD BIRTHDATE: [birth year] SOCIAL HISTORY: Lives with her and daughter. No reported alcohol use, history of past smoking. FAMILY HISTORY: Negative for renal failure per patient. ALLERGIES: No known drug allergies. MEDICATIONS: Include vitamin D, hydralazine, Lasix, Imdur, metoprolol, and Aldactone on. REVIEW OF SYSTEMS: All systems were reviewed and negative except for as per HPI. PHYSICAL EXAMINATION: VITAL SIGNS: Much recent vital signs, 98.3, 86, 20, 125/65, pulse ox 94% on room air. GENERAL: She is awake, alert, comfortable, slightly older appearing than her stated age woman lying comfortably in bed. HEAD AND NECK: Sclerae are anicteric. Oropharynx clear. Mucous membranes are moist. NECK: No JVD or lymphadenopathy. No neck stiffness or bruits. CARDIOVASCULAR: Regular rate. No audible rub. No palpable lift or heave. ABDOMEN: Soft, nontender, nondistended. LUNGS: Clear bilaterally. No audible rales, rhonchi or wheeze. SKIN: Without diffuse rashes or breakdowns or anomaly. EXTREMITIES: Without any further anasarca. No edema is present at this time. NEUROLOGIC: Gross motor function is normal, no asterixis. Normal sensation. Cranial nerves are intact. LABORATORIES AND DIAGNOSTICS: White blood cell count 7.7, hemoglobin 11.4, platelets 234. Urine sodium 66. Serum sodium 144, potassium 4.9, chloride 109, bicarbonate 23, BUN 68, creatinine 4.15, glucose 98. Estimated GFR 11, calcium 8.1, phosphorus 5.2, magnesium 2.3. Urinalysis 2+ protein, negative blood, few hyaline casts, no muddy brown. White blood cell count 7.6, hemoglobin 12.9, platelets 258. ASSESSMENT AND PLAN: Possible acute kidney injury on chronic kidney disease stage 4. I suspect that this is more likely progression of chronic kidney disease to stage V. She appears fairly euvolemic on evaluation, but the change from her last admission in mid to late August to now maybe because of her better volume status at this point. I would recommend avoidance of any nephrotoxins, NSAID, contrast agents. She needs follow up in our office and has another rescheduled appointment on December [address] Barkley of our group. At that point, we may need to consider creation of a permanent dialysis access and discussion of preESRD planning. At this point; however, I do not feel she needs maintenance IV fluids. She is eating and drinking well. Discontinuation of her diuretics for now may be a good idea, but I think that she will need something, otherwise she will get significantly anasarca again within a few weeks or months certainly. Her hypertension is well controlled. Avoid ERICH inhibitors or ARBs. [place], [place] REPORT OF CONSULTATION NAME: RAY MANZANO UNIT #: [id number] ROOM: 511 DOCTOR: ONEIDA NEUMANN MD BIRTHDATE: [birth year] Given her tenuous renal function, she would need to start one of these once she is on dialysis, most likely. Anemia is mild and does not require LOYD at this time. Hyperparathyroidism, likely is secondary to chronic kidney disease with hyperphosphatemia will be checked as well. Vitamin D levels were checked and have normalized. She does not require further vitamin D therapy for her vitamin D deficiency in the past. ONEIDA NEUMANN MD CM:CONSTR:REPORT OF CONSULTATION 1532 11/17/16 0007 interface
[~2016-11-15 17:04] MED LIST changes: +ALDACTONE25 MG PO; +FUROSEMIDE40 MG PO; +HYDRALAZINE HYD50 MG PO; +IMDUR SA60 M1 PO; +METOPROLOL SUCC25 M2 PO; +VITAMIN D50000 I3 PO
[2016-11-15 17:10] VITALS: BP 145/63
[2016-11-15 17:37] LABS: BASO % 0.4 % (0.0-1.0); EOS # 0.1 10*3/uL (0.0-0.4); EOS % 1.6 % (1.0-4.0); HEMATOCRIT 40.3 % (37.0-47.0); HEMOGLOBIN 12.9 g/dl (12.0-16.0); LYMPH # 1.5 10*3/uL (1.3-4.4); LYMPH % 19.2 % (27.0-41.0); MEAN CELL VOLUME 87.6 fl (81.0-99.0); MEAN PLATELET VOLUME 10.1 fl (9.6-12.3); MONO # 0.8 10*3/uL (0.1-1.0); MONO % 10.3 % (3.0-9.0); NEUT # 5.2 10*3/uL (2.3-7.9); NEUT % 68.1 % (47.0-73.0); PLATELET COUNT AUTOMATED 258 10*3/uL (130-400); RED CELL DISTRI WIDTH 14.6 % (0-14.5); WHITE BLOOD COUNT 7.6 10*3/uL (4.8-10.8)
[2016-11-15 17:49] LABS: MAGNESIUM 2.5 mg/dL (1.5-2.1)
[2016-11-15 18:27] LABS: BILIRUBIN NEGATIVE (NEGATIVE); BLOOD NEGATIVE (NEGATIVE); CLARITY SL CLOUDY (CLEAR); COLOR YELLOW (YELLOW); GLUCOSE NEGATIVE (NEGATIVE); KETONE NEGATIVE (NEGATIVE); LEUKO ESTERASE TRACE (NEGATIVE); NITRITE NEGATIVE (NEGATIVE); PROTEIN 2+ (NEGATIVE); SPECIFIC GRAVITY 1.025 (1.005-1.030); UROBILINOGEN 0.2 E.U./dl (0.2-1.0)
[2016-11-15 18:32] LABS: URINE REFLEX COMMENT YES (NO)
[2016-11-15 18:34] LABS: BACTERIA TRACE
[2016-11-15 20:00] VITALS: BP 121/55
[2016-11-15 20:20] VITALS: BP 121/55
[2016-11-16] VITALS: BP 151/60
[2016-11-16 04:00] VITALS: BP 136/60
[2016-11-16 06:01] LABS: BASO % 0.5 % (0.0-1.0); EOS # 0.2 10*3/uL (0.0-0.4); EOS % 1.9 % (1.0-4.0); HEMATOCRIT 35.3 % (37.0-47.0); HEMOGLOBIN 11.4 g/dl (12.0-16.0); LYMPH # 1.5 10*3/uL (1.3-4.4); LYMPH % 19.4 % (27.0-41.0); MEAN CELL VOLUME 87.4 fl (81.0-99.0); MEAN CORPUSCULAR HGB 28.2 pg (27.0-31.0); MEAN CORPUSCULAR HGB CONC 32.3 g/dl (33.0-37.0); MEAN PLATELET VOLUME 10.4 fl (9.6-12.3); MONO # 0.8 10*3/uL (0.1-1.0); MONO % 10.3 % (3.0-9.0); NEUT # 5.2 10*3/uL (2.3-7.9); NEUT % 67.4 % (47.0-73.0); PLATELET COUNT AUTOMATED 234 10*3/uL (130-400); RED BLOOD COUNT 4.04 10*6/uL (4.10-5.10); RED CELL DISTRI WIDTH 14.6 % (0-14.5); WHITE BLOOD COUNT 7.7 10*3/uL (4.8-10.8)
[2016-11-16 06:24] LABS: MAGNESIUM 2.3 mg/dL (1.5-2.1); PHOSPHOROUS 5.2 mg/dL (2.5-4.9); POTASSIUM 4.9 mmol/L (3.5-5.1)
[2016-11-16 08:00] VITALS: BP 133/58
[2016-11-16] MEDS ORDERED: LEVOTHYROXINE0.05 MG PO (10:06)
[2016-11-16 12:00] VITALS: BP 125/65
[2016-11-16 16:00] VITALS: BP 145/54
[2016-11-16 20:00] VITALS: BP 110/65
[2016-11-17] VITALS: BP 157/64
[2016-11-17 07:01] LABS: BASO % 0.4 % (0.0-1.0); EOS # 0.2 10*3/uL (0.0-0.4); EOS % 1.6 % (1.0-4.0); HEMATOCRIT 35.9 % (37.0-47.0); HEMOGLOBIN 11.7 g/dl (12.0-16.0); LYMPH # 1.6 10*3/uL (1.3-4.4); LYMPH % 16.8 % (27.0-41.0); MEAN CELL VOLUME 88.4 fl (81.0-99.0); MEAN CORPUSCULAR HGB 28.8 pg (27.0-31.0); MEAN CORPUSCULAR HGB CONC 32.6 g/dl (33.0-37.0); MEAN PLATELET VOLUME 10.4 fl (9.6-12.3); MONO % 10.1 % (3.0-9.0); NEUT # 6.7 10*3/uL (2.3-7.9); NEUT % 70.7 % (47.0-73.0); PLATELET COUNT AUTOMATED 230 10*3/uL (130-400); RED BLOOD COUNT 4.06 10*6/uL (4.10-5.10); RED CELL DISTRI WIDTH 14.4 % (0-14.5); WHITE BLOOD COUNT 9.4 10*3/uL (4.8-10.8)
[2016-11-17 07:32] LABS: ALBUMIN 2.7 gm/dl (3.1-4.5); MAGNESIUM 2.4 mg/dL (1.5-2.1); PHOSPHOROUS 5.1 mg/dL (2.5-4.9); POTASSIUM 4.9 mmol/L (3.5-5.1)
[2016-11-17 08:00] VITALS: BP 168/72
[2016-11-18 07:05] LABS: HIV 1+2 AB + HIV1 P24 AG Non Reactive (Non Reactive)
== END 2016-11-17 11:40 | disposition home or self-care (01) | DRG 682 ==
LOC: ED 17:04 → 5E 18:03 → EDHOLD 18:03 → 5E 18:11
PROVIDERS: Emergency Medicine; Internal Medicine; Internal Medicine Nephrology
DX: N17.0 Acute kidney failure with tubular necrosis (principal); E43 Unspecified severe protein-calorie malnutrition; I13.2 Hypertensive heart and chronic kidney disease with heart failure and with stage 5 chronic kidney disease, or end stage renal disease; E11.22 Type 2 diabetes mellitus with diabetic chronic kidney disease; E86.0 Dehydration; I50.22 Chronic systolic (congestive) heart failure; Z68.1 Body mass index [BMI] 19.9 or less, adult; D64.9 Anemia, unspecified; E11.65 Type 2 diabetes mellitus with hyperglycemia; E83.41 Hypermagnesemia; N18.5 Chronic kidney disease, stage 5; F17.210 Nicotine dependence, cigarettes, uncomplicated; E83.39 Other disorders of phosphorus metabolism; Z98.49 Cataract extraction status, unspecified eye; Z82.49 Family history of ischemic heart disease and other diseases of the circulatory system; Z79.899 Other long term (current) drug therapy; Z87.01 Personal history of pneumonia (recurrent); Z87.440 Personal history of urinary (tract) infections

== ENCOUNTER → 2016-12-13 | Outpatient (CLI) | payer MEDICARE, OTHER ==
[~2016-12-13] MED LIST changes: +LEVOTHYROXINE0.05 MG PO
[2016-12-13 10:28] LABS: BILIRUBIN NEGATIVE (NEGATIVE); BLOOD NEGATIVE (NEGATIVE); CLARITY CLEAR (CLEAR); COLOR YELLOW (YELLOW); GLUCOSE NEGATIVE (NEGATIVE); KETONE NEGATIVE (NEGATIVE); LEUKO ESTERASE TRACE (NEGATIVE); NITRITE NEGATIVE (NEGATIVE); PROTEIN 3+ (NEGATIVE); SPECIFIC GRAVITY 1.015 (1.005-1.030); UROBILINOGEN 0.2 E.U./dl (0.2-1.0)
[2016-12-13 10:30] LABS: HEMATOCRIT 36.7 % (37.0-47.0); HEMOGLOBIN 11.8 g/dl (12.0-16.0)
[2016-12-13 10:58] LABS: MAGNESIUM 2.8 mg/dL (1.5-2.1); PHOSPHOROUS 3.8 mg/dL (2.5-4.9); POTASSIUM 4.9 mmol/L (3.5-5.1)
[2016-12-13 12:20] LABS: BACTERIA 1+; EPITHELIAL CELLS 15-20; VITAMIN D, 25-HYDROXY 80.3 ng/mL (30-100); WBC 21-30 wbc/hpf (0-5)
[2016-12-13 12:21] LABS: PTH INTACT 43.4 pg/mL (14.0-72.0)
== END | disposition home or self-care (01) ==
LOC: LAB 09:41
PROVIDERS: Internal Medicine Nephrology
DX: N18.9 Chronic kidney disease, unspecified (principal); E55.9 Vitamin D deficiency, unspecified

== ENCOUNTER → 2017-01-26 | Outpatient (CLI) | payer MEDICARE, OTHER ==
[2017-01-26 09:53] LABS: BASO % 0.5 % (0.0-1.0); EOS # 0.1 10*3/uL (0.0-0.4); EOS % 1.2 % (1.0-4.0); HEMATOCRIT 31.6 % (37.0-47.0); HEMOGLOBIN 9.9 g/dl (12.0-16.0); LYMPH # 1.6 10*3/uL (1.3-4.4); LYMPH % 19.5 % (27.0-41.0); MEAN CELL VOLUME 95.5 fl (81.0-99.0); MEAN CORPUSCULAR HGB 29.9 pg (27.0-31.0); MEAN CORPUSCULAR HGB CONC 31.3 g/dl (33.0-37.0); MEAN PLATELET VOLUME 9.9 fl (9.6-12.3); MONO # 0.8 10*3/uL (0.1-1.0); MONO % 9.2 % (3.0-9.0); NEUT # 5.7 10*3/uL (2.3-7.9); NEUT % 69.4 % (47.0-73.0); PLATELET COUNT AUTOMATED 273 10*3/uL (130-400); RED BLOOD COUNT 3.31 10*6/uL (4.10-5.10); RED CELL DISTRI WIDTH 14.7 % (0-14.5); WHITE BLOOD COUNT 8.2 10*3/uL (4.8-10.8)
[2017-01-26 10:01] LABS: BILIRUBIN NEGATIVE (NEGATIVE); BLOOD 1+ (NEGATIVE); CLARITY CLOUDY (CLEAR); COLOR YELLOW (YELLOW); GLUCOSE NEGATIVE (NEGATIVE); KETONE NEGATIVE (NEGATIVE); LEUKO ESTERASE 3+ (NEGATIVE); NITRITE NEGATIVE (NEGATIVE); PH 5.5 (5.0-9.0); UROBILINOGEN 0.2 E.U./dl (0.2-1.0)
[2017-01-26 10:08] LABS: WBC TNTC wbc/hpf (0-5)
[2017-01-26 10:11] LABS: URINE CREATININE RANDOM 65.9 mg/dL
[2017-01-26 10:18] LABS: ALBUMIN 2.8 gm/dl (3.1-4.5); CREATININE 3.46 mg/dL (0.55-1.02); PHOSPHOROUS 3.9 mg/dL (2.5-4.9); POTASSIUM 5.2 mmol/L (3.5-5.1)
[2017-01-26 12:19] LABS: FERRITIN 196.4 ng/mL (10.0-291.0); PTH INTACT 42.3 pg/mL (14.0-72.0); VITAMIN D, 25-HYDROXY 33.6 ng/mL (30-100)
== END | disposition home or self-care (01) ==
LOC: LAB 09:20
PROVIDERS: Internal Medicine Nephrology
DX: N18.4 Chronic kidney disease, stage 4 (severe) (principal); D63.1 Anemia in chronic kidney disease

== ENCOUNTER → 2017-01-28 | Outpatient (CLI) | payer MEDICARE, OTHER | END | disposition home or self-care (01) | LOC: LAB 08:45 | DX: N18.4 Chronic kidney disease, stage 4 (severe) (principal); D63.1 Anemia in chronic kidney disease ==

== ENCOUNTER → 2017-03-21 | Outpatient (CLI) | payer MEDICARE, OTHER ==
[2017-03-21 10:44] LABS: BASO % 0.5 % (0.0-1.0); EOS # 0.1 10*3/uL (0.0-0.4); EOS % 1.2 % (1.0-4.0); HEMATOCRIT 31.9 % (37.0-47.0); HEMOGLOBIN 10.3 g/dl (12.0-16.0); LYMPH # 1.5 10*3/uL (1.3-4.4); LYMPH % 17.1 % (27.0-41.0); MEAN CELL VOLUME 94.1 fl (81.0-99.0); MEAN CORPUSCULAR HGB 30.4 pg (27.0-31.0); MEAN CORPUSCULAR HGB CONC 32.3 g/dl (33.0-37.0); MONO # 0.7 10*3/uL (0.1-1.0); MONO % 7.7 % (3.0-9.0); NEUT # 6.3 10*3/uL (2.3-7.9); PLATELET COUNT AUTOMATED 243 10*3/uL (130-400); RED BLOOD COUNT 3.39 10*6/uL (4.10-5.10); RED CELL DISTRI WIDTH 12.5 % (0-14.5); WHITE BLOOD COUNT 8.7 10*3/uL (4.8-10.8)
[2017-03-21 10:49] LABS: BILIRUBIN NEGATIVE (NEGATIVE); BLOOD TRACE-INTACT (NEGATIVE); CLARITY CLOUDY (CLEAR); COLOR YELLOW (YELLOW); GLUCOSE NEGATIVE (NEGATIVE); KETONE NEGATIVE (NEGATIVE); LEUKO ESTERASE 3+ (NEGATIVE); NITRITE POSITIVE (NEGATIVE); UROBILINOGEN 0.2 E.U./dl (0.2-1.0)
[2017-03-21 10:57] LABS: URINE CREATININE RANDOM 30.9 mg/dL
[2017-03-21 11:05] LABS: ALBUMIN 3.3 gm/dl (3.1-4.5); CREATININE 4.17 mg/dL (0.55-1.02); PHOSPHOROUS 3.7 mg/dL (2.5-4.9); POTASSIUM 4.9 mmol/L (3.5-5.1)
[2017-03-21 11:25] LABS: BACTERIA 2+
[2017-03-21 11:27] LABS: WBC 41-50 wbc/hpf (0-5)
[2017-03-21 11:40] LABS: PTH INTACT 100.8 pg/mL (14.0-72.0); VITAMIN D, 25-HYDROXY 33.9 ng/mL (30-100)
[2017-03-22 06:10] LABS: HEPATITIS B SURFACE AB 006395 Non Reactive (.); HEPATITIS B SURFACE AG Negative (Negative); HEPATITIS C VIRUS ANTIBODY <0.1 s/co (0.0-0.9)
== END | disposition home or self-care (01) ==
LOC: LAB 10:08
PROVIDERS: Internal Medicine Nephrology
DX: N18.5 Chronic kidney disease, stage 5 (principal); R53.83 Other fatigue

== ENCOUNTER → 2017-04-17 | Outpatient (CLI) | payer MEDICARE, OTHER ==
[2017-04-17 09:49] LABS: ALBUMIN 3.4 gm/dl (3.1-4.5); CREATININE 4.93 mg/dL (0.55-1.02); PHOSPHOROUS 4.3 mg/dL (2.5-4.9)
== END | disposition home or self-care (01) ==
LOC: LAB 09:04
PROVIDERS: Internal Medicine Nephrology
DX: N18.5 Chronic kidney disease, stage 5 (principal)

== ENCOUNTER → 2017-05-02 | Outpatient (CLI) | payer MEDICARE, OTHER ==
[2017-05-02 10:49] LABS: ALBUMIN 3.4 gm/dl (3.1-4.5); CREATININE 6.3 mg/dL (0.55-1.02); PHOSPHOROUS 5.2 mg/dL (2.5-4.9)
== END | disposition home or self-care (01) ==
LOC: LAB 10:03
PROVIDERS: Internal Medicine Nephrology
DX: N18.5 Chronic kidney disease, stage 5 (principal)

== ENCOUNTER → 2017-05-25 | Outpatient (CLI) | payer MEDICARE, OTHER ==
[2017-05-25 10:26] LABS: ALBUMIN 3.2 gm/dl (3.1-4.5); CREATININE 4.88 mg/dL (0.55-1.02); PHOSPHOROUS 4.7 mg/dL (2.5-4.9); POTASSIUM 4.3 mmol/L (3.5-5.1)
[2017-05-26 06:09] LABS: TOTAL PROTEIN, SERUM 6.3 g/dL (6.0-8.5)
[2017-05-26 07:06] LABS: COMPLEMENT C4 001834 23 mg/dL (14-44); IMMUNOGLOBULIN G, QNT 1034 mg/dL (700-1600); IMMUNOGLOBULIN M, QNT 43 mg/dL (26-217)
[2017-05-26 08:08] LABS: HEP B CORE AB TOTAL 006718 Negative (Negative); HEPATITIS B SURFACE AB 006395 Non Reactive (.); HEPATITIS B SURFACE AG Negative (Negative); HIV 1+2 AB + HIV1 P24 AG Non Reactive (Non Reactive)
[2017-05-26 19:10] LABS: FREE KAPPA LIGHT CHAINS 100.6 mg/L (3.3-19.4); FREE LAMBDA LIGHT CHAINS 61.8 mg/L (5.7-26.3); KAPPA/LAMBDA RATIO 1.63 (0.26-1.65)
[2017-05-29 12:06] LABS: ANTI-DSDNA ANTIBODIES 096339 1 IU/mL (0-9)
[2017-05-29 13:08] LABS: ALBUMIN 3.1 g/dL (2.9-4.4); ALPHA-1-GLOBULIN 0.3 g/dL (0.0-0.4); ALPHA-2-GLOBULIN 0.7 g/dL (0.4-1.0); GAMMA GLOBULIN 1.2 g/dL (0.4-1.8); GLOBULIN, TOTAL 3.2 g/dL (2.2-3.9); M-SPIKE Not Observed g/dL (Not Observed)
[2017-05-29 14:10] LABS: ALBUMIN, URINE 66.7 % (.); ALPHA-1-GLOBULIN, URINE 0.9 % (.); ALPHA-2-GLOBULIN, URINE 5.5 % (.); GLOMERULAR BASEMENT 082719 4 units (0-20); M-SPIKE, % Not Observed % (Not Observed); PROTEIN,TOTAL - URINE RANDOM 183.2 mg/dL (Not Estab.)
[2017-05-29 17:09] LABS: ANTIMYELOPEROXIDASE (MPO) ABS <9.0 U/mL (0.0-9.0); ATYPICAL PANCA <1:20 titer (Neg:<1:20); CYTOPLASMIC (C-ANCA) <1:20 titer (Neg:<1:20); PERINUCLEAR (P-ANCA) <1:20 titer (Neg:<1:20)
== END | disposition home or self-care (01) ==
LOC: LAB 09:25
PROVIDERS: Internal Medicine Nephrology
DX: Z11.4 Encounter for screening for human immunodeficiency virus [HIV] (principal); N18.5 Chronic kidney disease, stage 5; R80.9 Proteinuria, unspecified; R53.83 Other fatigue

== ENCOUNTER → 2017-06-26 | Outpatient (CLI) | payer MEDICARE, OTHER ==
[2017-06-28 04:04] LABS: HEPATITIS B SURFACE AB 006395 Non Reactive (.); HEPATITIS B SURFACE AG Negative (Negative)
== END | disposition home or self-care (01) ==
LOC: LAB 11:14
PROVIDERS: Internal Medicine Nephrology
DX: Z01.89 Encounter for other specified special examinations (principal); N18.5 Chronic kidney disease, stage 5; R53.83 Other fatigue; Z79.899 Other long term (current) drug therapy

== ENCOUNTER 2017-07-17 13:08 | Inpatient (IN) | payer MEDICARE, OTHER ==
[~2017-07-17] VITALS: Ht 157.4 cm; Wt 46.3 kg
--- NOTE | ~2017-07-17 | CON ---
[place], [place] REPORT OF CONSULTATION [id number] UNIT #: [id number] ROOM: 523 DOCTOR: YENI COLON DPM BIRTHDATE: [birth year] DOS: 07/20/2017 SUBJECTIVE: This 67-year-old white female is seen for care of a painful callus on the right foot. She states it has been there for many years. It builds up and becomes uncomfortable. The patient states she was previously diagnosed with diabetic, but she is no longer diabetic. PAST MEDICAL HISTORY: Positive for CHF, chronic renal failure on dialysis, hypothyroidism, pericardial effusion, prediabetes, severe protein-calorie malnutrition, underweight, vitamin D deficiency. ALLERGIES: The patient has no known allergies. CURRENT MEDICATIONS: Include Levaquin, Zosyn, mannitol, heparin, albumin, vancomycin, Protonix, Coreg, DuoNeb, Restoril. OBJECTIVE: Upon lower extremity physical examination, DP and PT pedal pulses are mildly decreased. Skin temperature is warm. CFT is 2 seconds to all digits. There is diminished hair growth noted. Mild dependent edema noted bilaterally. Sensation appears mildly decreased in the forefoot bilaterally. There is plantar fat pad atrophy noted in the balls of both feet with prominent metatarsal heads. Extremely thick and large callus noted to sub-third metatarsal head, right foot with mild hemorrhagic tissue. Upon debridement, there is no break in the skin or ulceration, no surrounding edema or erythema, no drainage or malodor. Digits are contracted bilaterally. ASSESSMENT: Hammertoe deformity with prominent metatarsal heads; hyperkeratosis, plantar third metatarsal head, right foot and prediabetes. PLAN: Consult is performed. I debrided the callus on the left foot using a 15 blade. No wound was present. No wound was created. We could offload the area to keep pressure off the area. Discussed about wearing proper shoe gear. Follow up with the patient as an outpatient for palliative foot care or sooner if there is a problem. Thank you for the opportunity to take part in care of this patient. YENI COLON DPM CM:CONSTR:REPORT OF CONSULTATION 1229 07/28/17 0854 interface
[2017-07-17 13:27] VITALS: BP 110/40
[2017-07-17 14:20] LABS: BASO % 0.1 % (0.0-1.0); HEMATOCRIT 28.7 % (37.0-47.0); HEMOGLOBIN 9.4 g/dl (12.0-16.0); LYMPH # 0.6 10*3/uL (1.3-4.4); LYMPH % 4.1 % (27.0-41.0); MEAN CELL VOLUME 93.8 fl (81.0-99.0); MEAN CORPUSCULAR HGB 30.7 pg (27.0-31.0); MEAN CORPUSCULAR HGB CONC 32.8 g/dl (33.0-37.0); MEAN PLATELET VOLUME 10.2 fl (9.6-12.3); MONO # 1.3 10*3/uL (0.1-1.0); NEUT # 12.7 10*3/uL (2.3-7.9); NEUT % 86.2 % (47.0-73.0); PLATELET COUNT AUTOMATED 205 10*3/uL (130-400); RED BLOOD COUNT 3.06 10*6/uL (4.10-5.10); RED CELL DISTRI WIDTH 13.9 % (0-14.5); WHITE BLOOD COUNT 14.8 10*3/uL (4.8-10.8)
[2017-07-17 14:36] LABS: ALBUMIN 2.7 gm/dl (3.1-4.5); CREATININE 2.2 mg/dL (0.55-1.02); POTASSIUM 3.8 mmol/L (3.5-5.1); TOTAL PROTEIN 6.9 gm/dL (6.4-8.2); TROPONIN I 0.039 ng/ml (<0.045)
[2017-07-17 16:02] LABS: BILIRUBIN 1+ (NEGATIVE); BLOOD TRACE-LYSED (NEGATIVE); CLARITY CLOUDY (CLEAR); COLOR YELLOW (YELLOW); GLUCOSE NEGATIVE (NEGATIVE); KETONE NEGATIVE (NEGATIVE); LEUKO ESTERASE 3+ (NEGATIVE); NITRITE NEGATIVE (NEGATIVE); PH 5.5 (5.0-9.0); SPECIFIC GRAVITY 1.025 (1.005-1.030); UROBILINOGEN 0.2 E.U./dl (0.2-1.0)
[2017-07-17 16:10] VITALS: BP 122/54
[2017-07-17 16:13] LABS: BACTERIA 4+; WBC TNTC wbc/hpf (0-5)
[2017-07-17 18:22] VITALS: BP 123/42
[2017-07-17] MEDS ORDERED: NORVASC5 MG PO (18:30)
[2017-07-17] MEDS ORDERED: LASIX80 MG PO (18:30)
[2017-07-17] MEDS ORDERED: COREG6.25 MG PO (18:30)
[2017-07-17 18:59] LABS: ABG HCO3 29.6 mmol/l (22-26); ABG O2 SATURATION 87.3 % (95-97); ARTERIAL BLOOD GAS PCO2 40.4 mmHg (35-45); ARTERIAL BLOOD GAS PH 7.479 (7.35-7.45); ARTERIAL BLOOD GAS PO2 49.2 mmHg (80-90)
[2017-07-17 20:00] VITALS: BP 126/44
[2017-07-18] VITALS (8 sets, daily range): BP systolic 92–125; BP diastolic 30–50
[2017-07-18 06:48] LABS: HEMOGLOBIN 8.6 g/dl (12.0-16.0); MEAN CELL VOLUME 93.5 fl (81.0-99.0); MEAN CORPUSCULAR HGB 30.9 pg (27.0-31.0); MEAN CORPUSCULAR HGB CONC 33.1 g/dl (33.0-37.0); MEAN PLATELET VOLUME 10.6 fl (9.6-12.3); PLATELET COUNT AUTOMATED 199 10*3/uL (130-400); RED BLOOD COUNT 2.78 10*6/uL (4.10-5.10); RED CELL DISTRI WIDTH 13.9 % (0-14.5); WHITE BLOOD COUNT 12.8 10*3/uL (4.8-10.8)
[2017-07-18 06:57] LABS: ALBUMIN 2.2 gm/dl (3.1-4.5); CREATININE 3.32 mg/dL (0.55-1.02); PHOSPHOROUS 2.1 mg/dL (2.5-4.9); POTASSIUM 3.8 mmol/L (3.5-5.1)
[2017-07-18 07:04] LABS: THYROID STIM HORMONE (HS) 1.06 uIU/ml (0.358-4.75)
[2017-07-18 07:18] LABS: TOTAL CELLS COUNTED 100 #CELLS
[2017-07-18 07:19] LABS: BURR CELLS FEW; PLATELET SUFFICIENCY NORMAL (NORMAL)
[2017-07-18 14:52] LABS: BILIRUBIN NEGATIVE (NEGATIVE); BLOOD 1+ (NEGATIVE); CLARITY TURBID (CLEAR); COLOR YELLOW (YELLOW); GLUCOSE NEGATIVE (NEGATIVE); KETONE TRACE (NEGATIVE); LEUKO ESTERASE 2+ (NEGATIVE); NITRITE NEGATIVE (NEGATIVE); PH 5.5 (5.0-9.0); SPECIFIC GRAVITY 1.025 (1.005-1.030); UROBILINOGEN 0.2 E.U./dl (0.2-1.0)
[2017-07-18 15:01] LABS: BACTERIA 3+; EPITHELIAL CELLS 25-30; WBC TNTC wbc/hpf (0-5)
[2017-07-19 00:17] VITALS: BP 115/62
[2017-07-19 08:00] VITALS: BP 125/54
[2017-07-19 15:38] LABS: BASO % 0.1 % (0.0-1.0); HEMATOCRIT 24.8 % (37.0-47.0); HEMOGLOBIN 8.1 g/dl (12.0-16.0); LYMPH # 1.1 10*3/uL (1.3-4.4); LYMPH % 6.8 % (27.0-41.0); MEAN CELL VOLUME 93.6 fl (81.0-99.0); MEAN CORPUSCULAR HGB 30.6 pg (27.0-31.0); MEAN CORPUSCULAR HGB CONC 32.7 g/dl (33.0-37.0); MEAN PLATELET VOLUME 9.9 fl (9.6-12.3); MONO # 0.8 10*3/uL (0.1-1.0); NEUT # 14.4 10*3/uL (2.3-7.9); NEUT % 87.1 % (47.0-73.0); PLATELET COUNT AUTOMATED 185 10*3/uL (130-400); RED BLOOD COUNT 2.65 10*6/uL (4.10-5.10); RED CELL DISTRI WIDTH 14.3 % (0-14.5); WHITE BLOOD COUNT 16.6 10*3/uL (4.8-10.8)
[2017-07-19 16:00] VITALS: BP 119/53
[2017-07-19 16:09] LABS: ALBUMIN 2.6 gm/dl (3.1-4.5); CREATININE 1.63 mg/dL (0.55-1.02); POTASSIUM 3.5 mmol/L (3.5-5.1); TOTAL PROTEIN 6.2 gm/dL (6.4-8.2)
[2017-07-19 20:00] VITALS: BP 115/61
[2017-07-20] VITALS: BP 129/49
[2017-07-20 08:00] VITALS: BP 122/40
[2017-07-20 10:15] LABS: BASO % 0.1 % (0.0-1.0); HEMATOCRIT 25.6 % (37.0-47.0); HEMOGLOBIN 8.2 g/dl (12.0-16.0); LYMPH # 0.8 10*3/uL (1.3-4.4); LYMPH % 5.7 % (27.0-41.0); MEAN CELL VOLUME 95.2 fl (81.0-99.0); MEAN CORPUSCULAR HGB 30.5 pg (27.0-31.0); MEAN PLATELET VOLUME 10.4 fl (9.6-12.3); MONO # 0.9 10*3/uL (0.1-1.0); MONO % 6.4 % (3.0-9.0); NEUT # 12.3 10*3/uL (2.3-7.9); NEUT % 86.4 % (47.0-73.0); PLATELET COUNT AUTOMATED 215 10*3/uL (130-400); RED BLOOD COUNT 2.69 10*6/uL (4.10-5.10); RED CELL DISTRI WIDTH 14.3 % (0-14.5); WHITE BLOOD COUNT 14.3 10*3/uL (4.8-10.8)
[2017-07-20 10:32] LABS: ALBUMIN 2.1 gm/dl (3.1-4.5); CREATININE 3.02 mg/dL (0.55-1.02); POTASSIUM 3.4 mmol/L (3.5-5.1)
[2017-07-20 12:00] VITALS: BP 129/46
[2017-07-20] MEDS ORDERED: VIBRAMYCIN100 MG PO (13:09)
== END 2017-07-20 15:37 | disposition other institution (70) | DRG 177 ==
LOC: ED 13:08 → EDHOLD 16:59 → 5E 16:59
PROVIDERS: Emergency Medicine; Family Medicine; Internal Medicine
PROC: 5A1D70Z Performance of Urinary Filtration, Intermittent, Less than 6 Hours Per Day (ICD-10-PCS; principal; 2017-07-19)
DX: J69.0 Pneumonitis due to inhalation of food and vomit (principal); J96.01 Acute respiratory failure with hypoxia; G93.41 Metabolic encephalopathy; I13.2 Hypertensive heart and chronic kidney disease with heart failure and with stage 5 chronic kidney disease, or end stage renal disease; R82.2 Biliuria; N18.6 End stage renal disease; L89.890 Pressure ulcer of other site, unstageable; I50.22 Chronic systolic (congestive) heart failure; N39.0 Urinary tract infection, site not specified; Z68.1 Body mass index [BMI] 19.9 or less, adult; E86.0 Dehydration; R63.6 Underweight; Z99.2 Dependence on renal dialysis; Z98.49 Cataract extraction status, unspecified eye; F17.210 Nicotine dependence, cigarettes, uncomplicated; Z82.49 Family history of ischemic heart disease and other diseases of the circulatory system; E21.3 Hyperparathyroidism, unspecified; D64.9 Anemia, unspecified; R73.03 Prediabetes; E03.9 Hypothyroidism, unspecified; L85.9 Epidermal thickening, unspecified; M20.42 Other hammer toe(s) (acquired), left foot; M20.41 Other hammer toe(s) (acquired), right foot

== ENCOUNTER 2017-08-27 21:51 | Inpatient (IN) | payer MEDICARE, OTHER ==
[~2017-08-27] VITALS: Ht 157.4 cm; Wt 42.3 kg
[~2017-08-27 21:51] MED LIST changes: +COREG6.25 MG PO; +LASIX80 MG PO; +NORVASC5 MG PO; +VIBRAMYCIN100 MG PO
[2017-08-27 21:57] VITALS: BP 132/52
[2017-08-27 22:24] VITALS: BP 107/51
[2017-08-27 22:53] LABS: HEMATOCRIT 41.4 % (37.0-47.0); HEMOGLOBIN 12.8 g/dl (12.0-16.0); MEAN CORPUSCULAR HGB 30.6 pg (27.0-31.0); MEAN CORPUSCULAR HGB CONC 30.9 g/dl (33.0-37.0); MEAN PLATELET VOLUME 9.8 fl (9.6-12.3); PLATELET COUNT AUTOMATED 233 10*3/uL (130-400); RED BLOOD COUNT 4.18 10*6/uL (4.10-5.10); RED CELL DISTRI WIDTH 15.6 % (0-14.5); WHITE BLOOD COUNT 23.8 10*3/uL (4.8-10.8)
[2017-08-27 23:06] LABS: ACT PARTIAL THROMBO TIME 28.8 SECONDS (20.8-31.5)
[2017-08-27 23:13] LABS: PLATELET SUFFICIENCY NORMAL (NORMAL); POLYCHROMASIA SLIGHT; TOTAL CELLS COUNTED 100 #CELLS
[2017-08-27 23:15] LABS: ALBUMIN 2.8 gm/dl (3.1-4.5); ALKALINE PHOSPHATASE 68 U/L (45-117); BUN 19 mg/dl (7-24); CHLORIDE 95 mmol/L (98-107); CREATININE 3.51 mg/dL (0.55-1.02); POTASSIUM 4.8 mmol/L (3.5-5.1); SGOT/AST 13 IU/L (3-35); SGPT/ALT 15 U/L (12-78); SODIUM 132 mmol/L (136-145); TOTAL PROTEIN 8.1 gm/dL (6.4-8.2)
[2017-08-27 23:18] LABS: TROPONIN I < 0.015 ng/ml (<0.045)
[2017-08-27 23:43] VITALS: BP 116/51
[2017-08-28] VITALS: BP 119/85
[2017-08-28 00:10] VITALS: BP 119/85
[2017-08-28] MEDS ORDERED: NICODERM CQ1 EAC2 T (00:14)
[2017-08-28] MEDS ORDERED: Hydralazine Hyd25 MG PO (00:40)
[2017-08-28] MEDS ORDERED: CYPROHEPTADINE H4 MG PO (00:41)
[2017-08-28 05:30] LABS: ALBUMIN 2.4 gm/dl (3.1-4.5); CREATININE 3.84 mg/dL (0.55-1.02); PHOSPHOROUS 4.1 mg/dL (2.5-4.9); POTASSIUM 4.3 mmol/L (3.5-5.1)
[2017-08-28 05:58] LABS: HEMATOCRIT 37.1 % (37.0-47.0); HEMOGLOBIN 11.5 g/dl (12.0-16.0); MEAN CELL VOLUME 99.7 fl (81.0-99.0); MEAN CORPUSCULAR HGB 30.9 pg (27.0-31.0); MEAN PLATELET VOLUME 10.2 fl (9.6-12.3); PLATELET COUNT AUTOMATED 250 10*3/uL (130-400); RED BLOOD COUNT 3.72 10*6/uL (4.10-5.10); RED CELL DISTRI WIDTH 15.5 % (0-14.5); WHITE BLOOD COUNT 25.7 10*3/uL (4.8-10.8)
[2017-08-28 07:01] LABS: BASOPHILS 1 % (0-1); TOTAL CELLS COUNTED 100 #CELLS
[2017-08-28 07:02] LABS: PLATELET SUFFICIENCY NORMAL (NORMAL)
[2017-08-28 08:00] VITALS: BP 106/45
[2017-08-28 12:00] VITALS: BP 105/48
[2017-08-28 16:00] VITALS: BP 99/42
[2017-08-28 20:00] VITALS: BP 94/46
[2017-08-28 22:54] LABS: BILIRUBIN NEGATIVE (NEGATIVE); BLOOD NEGATIVE (NEGATIVE); CLARITY SL CLOUDY (CLEAR); COLOR YELLOW (YELLOW); GLUCOSE NEGATIVE (NEGATIVE); KETONE NEGATIVE (NEGATIVE); LEUKO ESTERASE TRACE (NEGATIVE); NITRITE NEGATIVE (NEGATIVE); PH 5.5 (5.0-9.0); SPECIFIC GRAVITY 1.025 (1.005-1.030); UROBILINOGEN 0.2 E.U./dl (0.2-1.0)
[2017-08-28 23:17] LABS: BACTERIA 3+
[2017-08-28 23:18] LABS: EPITHELIAL CELLS 51-100; WBC 21-30 wbc/hpf (0-5)
[2017-08-28 23:20] LABS: COARSE GRANULAR CAST 51-100
[2017-08-29] VITALS: BP 107/78
[2017-08-29 07:42] LABS: HEMATOCRIT 34.6 % (37.0-47.0); HEMOGLOBIN 10.8 g/dl (12.0-16.0); MEAN CORPUSCULAR HGB 30.6 pg (27.0-31.0); MEAN CORPUSCULAR HGB CONC 31.2 g/dl (33.0-37.0); PLATELET COUNT AUTOMATED 237 10*3/uL (130-400); RED BLOOD COUNT 3.53 10*6/uL (4.10-5.10); RED CELL DISTRI WIDTH 15.7 % (0-14.5); WHITE BLOOD COUNT 20.5 10*3/uL (4.8-10.8)
[2017-08-29 07:52] LABS: BURR CELLS FEW; PLATELET SUFFICIENCY NORMAL (NORMAL); TOTAL CELLS COUNTED 100 #CELLS; TOXIC GRANULATION SLIGHT; VACUOLATION OF NEUTROPHILS SLIGHT
[2017-08-29 08:00] VITALS: BP 100/50
[2017-08-29 08:02] LABS: CREATININE 5.67 mg/dL (0.55-1.02); POTASSIUM 5.1 mmol/L (3.5-5.1)
[2017-08-29 16:00] VITALS: BP 111/50
[2017-08-29 20:00] VITALS: BP 94/48
[2017-08-30] VITALS: BP 98/52
[2017-08-30 06:48] LABS: BASO # 0.1 10*3/uL (0.0-0.1); BASO % 0.4 % (0.0-1.0); EOS # 0.2 10*3/uL (0.0-0.4); EOS % 1.2 % (1.0-4.0); HEMATOCRIT 36.2 % (37.0-47.0); HEMOGLOBIN 11.2 g/dl (12.0-16.0); LYMPH # 1.1 10*3/uL (1.3-4.4); MEAN CELL VOLUME 98.6 fl (81.0-99.0); MEAN CORPUSCULAR HGB 30.5 pg (27.0-31.0); MEAN CORPUSCULAR HGB CONC 30.9 g/dl (33.0-37.0); MEAN PLATELET VOLUME 10.3 fl (9.6-12.3); MONO # 1.3 10*3/uL (0.1-1.0); MONO % 10.4 % (3.0-9.0); NEUT # 9.9 10*3/uL (2.3-7.9); PLATELET COUNT AUTOMATED 247 10*3/uL (130-400); RED BLOOD COUNT 3.67 10*6/uL (4.10-5.10); RED CELL DISTRI WIDTH 15.6 % (0-14.5); WHITE BLOOD COUNT 12.6 10*3/uL (4.8-10.8)
[2017-08-30 07:02] LABS: ALBUMIN 2.1 gm/dl (3.1-4.5); CREATININE 3.72 mg/dL (0.55-1.02); PHOSPHOROUS 4.6 mg/dL (2.5-4.9); POTASSIUM 4.5 mmol/L (3.5-5.1)
[2017-08-30 08:00] VITALS: BP 107/48
[2017-08-30 12:00] VITALS: BP 116/65
[2017-08-30 12:30] VITALS: BP 130/97
[2017-08-30 16:00] VITALS: BP 98/50
[2017-08-30 20:00] VITALS: BP 100/50
[2017-08-31] VITALS: BP 127/63
[2017-08-31 06:44] LABS: ALBUMIN 1.9 gm/dl (3.1-4.5); CREATININE 5.32 mg/dL (0.55-1.02); PHOSPHOROUS 6.6 mg/dL (2.5-4.9); POTASSIUM 4.3 mmol/L (3.5-5.1)
[2017-08-31 12:00] VITALS: BP 138/58
[2017-08-31 16:00] VITALS: BP 100/48
[2017-08-31 20:00] VITALS: BP 101/37
[2017-09-01] VITALS: BP 123/52
[2017-09-01 07:45] LABS: HEMATOCRIT 38.4 % (37.0-47.0); HEMOGLOBIN 11.8 g/dl (12.0-16.0); MEAN CELL VOLUME 98.2 fl (81.0-99.0); MEAN CORPUSCULAR HGB 30.2 pg (27.0-31.0); MEAN CORPUSCULAR HGB CONC 30.7 g/dl (33.0-37.0); MEAN PLATELET VOLUME 10.2 fl (9.6-12.3); PLATELET COUNT AUTOMATED 281 10*3/uL (130-400); RED BLOOD COUNT 3.91 10*6/uL (4.10-5.10); RED CELL DISTRI WIDTH 15.4 % (0-14.5); WHITE BLOOD COUNT 11.2 10*3/uL (4.8-10.8)
[2017-09-01 08:00] VITALS: BP 133/63
[2017-09-01 08:03] LABS: ALBUMIN 2.2 gm/dl (3.1-4.5); CREATININE 4.56 mg/dL (0.55-1.02); PHOSPHOROUS 5.5 mg/dL (2.5-4.9); POTASSIUM 3.8 mmol/L (3.5-5.1)
[2017-09-01 08:08] LABS: BASOPHILS 1 % (0-1); PLATELET SUFFICIENCY NORMAL (NORMAL); TOTAL CELLS COUNTED 100 #CELLS
[2017-09-01] MEDS ORDERED: MUCINEX ER600 MG PO (13:01)
[2017-09-01] MEDS ORDERED: DOXYCYCLINE100 M3 PO (13:01)
== END 2017-09-01 14:03 | disposition other institution (70) | DRG 871 ==
LOC: ED 21:51 → EDHOLD 23:34 → 5E 23:34
PROVIDERS: Internal Medicine; Internal Medicine Nephrology; Student in an Organized Health Care Education/Training Program
PROC: 5A1D70Z Performance of Urinary Filtration, Intermittent, Less than 6 Hours Per Day (ICD-10-PCS; principal; 2017-08-29)
PROC: 5A1D70Z Performance of Urinary Filtration, Intermittent, Less than 6 Hours Per Day (ICD-10-PCS; 2017-08-31)
DX: A41.9 Sepsis, unspecified organism (principal); E43 Unspecified severe protein-calorie malnutrition; I13.2 Hypertensive heart and chronic kidney disease with heart failure and with stage 5 chronic kidney disease, or end stage renal disease; I50.22 Chronic systolic (congestive) heart failure; E87.8 Other disorders of electrolyte and fluid balance, not elsewhere classified; J18.9 Pneumonia, unspecified organism; E11.22 Type 2 diabetes mellitus with diabetic chronic kidney disease; N18.6 End stage renal disease; E87.1 Hypo-osmolality and hyponatremia; Z68.1 Body mass index [BMI] 19.9 or less, adult; E21.3 Hyperparathyroidism, unspecified; E03.9 Hypothyroidism, unspecified; E55.9 Vitamin D deficiency, unspecified; E11.65 Type 2 diabetes mellitus with hyperglycemia; Z99.2 Dependence on renal dialysis; Z79.899 Other long term (current) drug therapy; Z87.440 Personal history of urinary (tract) infections; Z98.42 Cataract extraction status, left eye; Z98.41 Cataract extraction status, right eye; Z82.49 Family history of ischemic heart disease and other diseases of the circulatory system

== ENCOUNTER → 2017-10-19 | Outpatient (CLI) | payer MEDICARE, OTHER ==
[~2017-10-19] MED LIST changes: +CYPROHEPTADINE H4 MG PO; +DOXYCYCLINE100 M3 PO; +Hydralazine Hyd25 MG PO; +MUCINEX ER600 MG PO; +NICODERM CQ1 EAC2 T
== END | disposition home or self-care (01) ==
LOC: CARD 11:27
DX: I34.0 Nonrheumatic mitral (valve) insufficiency (principal)

== ENCOUNTER 2018-03-02 17:18 | Emergency (ER) | payer MEDICARE, OTHER ==
[~2018-03-02] VITALS: Ht 162.5 cm; Wt 43.1 kg
== END 2018-03-02 18:19 | disposition home or self-care (01) ==
LOC: ED 17:18
DX: L98.8 Other specified disorders of the skin and subcutaneous tissue (principal)

== ENCOUNTER 2021-11-20 00:04 | Inpatient (IN) | payer MEDICARE, OTHER ==
[~2021-11-20] VITALS: Ht 157.5 cm; Wt 48.3 kg
[2021-11-20] VITALS (8 sets, daily range): BP systolic 147–185; BP diastolic 60–91
[2021-11-20 01:56] LABS: BASO % 0.2 % (0.0-1.0); HEMATOCRIT 37.5 % (37.0-47.0); LYMPH # 0.7 10*3/uL (1.3-4.4); LYMPH % 5.2 % (27.0-41.0); MEAN CELL VOLUME 95.2 fl (81.0-99.0); MEAN CORPUSCULAR HGB 28.9 pg (27.0-31.0); MEAN CORPUSCULAR HGB CONC 30.4 g/dl (33.0-37.0); MEAN PLATELET VOLUME 10.4 fl (9.6-12.3); MONO # 1.1 10*3/uL (0.1-1.0); MONO % 8.2 % (3.0-9.0); NEUT # 11.5 10*3/uL (2.3-7.9); NEUT % 85.8 % (47.0-73.0); PLATELET COUNT AUTOMATED 262 10*3/uL (130-400); RED BLOOD COUNT 3.94 10*6/uL (4.10-5.10); RED CELL DISTRI WIDTH 15.1 % (0-14.5); WHITE BLOOD COUNT 13.4 10*3/uL (4.8-10.8)
[2021-11-20 02:12] LABS: CREATININE 4.25 mg/dL (0.55-1.02); POTASSIUM 4.9 mmol/L (3.5-5.1); TOTAL PROTEIN 6.8 gm/dL (6.4-8.2)
[2021-11-20 02:56] LABS: BILIRUBIN Negative (Negative); BLOOD 2+ (Negative); CLARITY Turbid (Clear); COLOR Yellow (Yellow); GLUCOSE Trace (Negative); KETONE Negative (Negative); LEUKO ESTERASE 3+ (Negative); NITRITE Negative (Negative); UROBILINOGEN 0.2 E.U./dl (0.0-1.0)
[2021-11-20 03:17] LABS: PH 8.5 (4.5-8.0); WBC TNTC wbc/hpf (0-5)
[2021-11-20] MEDS ORDERED: VELPHORO500 M1 PO (11:45)
[2021-11-20] MEDS ORDERED: Lopressor25 MG PO (11:45)
[2021-11-21] VITALS: BP 137/99
[2021-11-21 08:00] VITALS: BP 182/62
[2021-11-21 12:00] VITALS: BP 175/53
[2021-11-21 16:00] VITALS: BP 167/66
[2021-11-21 20:00] VITALS: BP 167/57
[2021-11-22] VITALS: BP 168/59
[2021-11-22 07:13] LABS: BASO % 0.4 % (0.0-1.0); EOS # 0.2 10*3/uL (0.0-0.4); EOS % 1.6 % (1.0-4.0); LYMPH # 1.2 10*3/uL (1.3-4.4); LYMPH % 11.7 % (27.0-41.0); MEAN CELL VOLUME 93.2 fl (81.0-99.0); MEAN CORPUSCULAR HGB 29.2 pg (27.0-31.0); MEAN CORPUSCULAR HGB CONC 31.4 g/dl (33.0-37.0); MONO # 1.2 10*3/uL (0.1-1.0); MONO % 12.2 % (3.0-9.0); NEUT # 7.5 10*3/uL (2.3-7.9); NEUT % 73.7 % (47.0-73.0); PLATELET COUNT AUTOMATED 262 10*3/uL (130-400); RED BLOOD COUNT 3.97 10*6/uL (4.10-5.10); RED CELL DISTRI WIDTH 15.3 % (0-14.5); WHITE BLOOD COUNT 10.2 10*3/uL (4.8-10.8)
[2021-11-22 07:32] LABS: CREATININE 7.07 mg/dL (0.55-1.02); POTASSIUM 5.8 mmol/L (3.5-5.1)
[2021-11-22 12:00] VITALS: BP 170/86
[2021-11-22 16:00] VITALS: BP 151/55
[2021-11-22 20:00] VITALS: BP 118/49
[2021-11-23] VITALS: BP 112/49
[2021-11-23] MEDS ORDERED: METOPROLOL TART50 M1 PO (06:47)
[2021-11-23] MEDS ORDERED: ACETAMINOPHEN500 M4 PO (06:47)
[2021-11-23] MEDS ORDERED: AMLODIPINE BESYL5 MG PO (06:47)
[2021-11-23 08:00] VITALS: BP 132/48
== END 2021-11-23 11:20 | DRG 553 ==
LOC: ED 00:04 → EDHOLD 04:12 → 5E 04:12
PROVIDERS: Internal Medicine; ADMIT Internal Medicine; ATTEND Internal Medicine
DX: M17.12 Unilateral primary osteoarthritis, left knee (principal); N18.6 End stage renal disease; I13.2 Hypertensive heart and chronic kidney disease with heart failure and with stage 5 chronic kidney disease, or end stage renal disease; E44.0 Moderate protein-calorie malnutrition; Z68.1 Body mass index [BMI] 19.9 or less, adult; R26.2 Difficulty in walking, not elsewhere classified; E03.9 Hypothyroidism, unspecified; R62.7 Adult failure to thrive; D64.9 Anemia, unspecified; G30.1 Alzheimer's disease with late onset; F02.80 Dementia in other diseases classified elsewhere, unspecified severity, without behavioral disturbance, psychotic disturbance, mood disturbance, and anxiety; Z20.822 Contact with and (suspected) exposure to COVID-19; Z99.2 Dependence on renal dialysis; Z98.42 Cataract extraction status, left eye; Z82.49 Family history of ischemic heart disease and other diseases of the circulatory system